=== PATIENT | male | born 1980 | race Caucasian/White ===

== ENCOUNTER 2022-01-15 11:56 | Observation (INO) ==
[2022-01-15] MEDS ORDERED: ONDANSETRON INJ 2 MG/ML 2 ML VIAL IV STA (12:09)
[2022-01-15] MEDS ORDERED: MoRPHine SULFATE 10 MG/ML CARP/VIAL IV STA ×2 (12:09→15:49)
--- NOTE | 2022-01-15 12:14 | Emergency Department Note ---
Impression & Plan Renal colic on right side, Kidney stones, Acute flank pain ED Provider Note NAME: DOM MILLER AGE: 41 SEX: M : 1980 ARRIVES VIA: Walk-In INFORMANT: Patient ED PROVIDER(S): Marvel Dominguez DO CHIEF COMPLAINT: abdominal pain HPI: Patient is a 41-year-old male who presents to the ER for right flank pain. Symptoms started about a week ago. He has been taking Flomax and Percocet. Denies any headache or change in vision. No chest pain or shortness of breath. Admits to nausea but no current vomiting. He has had some issues with constipation. Is having dysuria, urgency, or frequency. He notes he has not been urinating normally since Saturday. He is only urinating a small amount. ROS: See above HPI for pertinent positives & negatives. A total of 10 systems reviewed and were otherwise negative. PAST MEDICAL HISTORY:See Below PAST SURGICAL HISTORY:See Below FAMILY HISTORY:See Below SOCIAL HISTORY:See Below HOME MEDICATIONS:See Below ALLERGIES:See Below VITALS:See Below PHYSICAL EXAMINATION: GENERAL: Sitting up in bed, alert, moderate distress, non-toxic, morbidly obese, tearful EYE EXAM: normal conjunctiva. OROPHARYNX: no exudate, no erythema, lips, buccal mucosa, and tongue normal and mucous membranes are moist NECK: supple, no nuchal rigidity, no adenopathy, non-tender LUNGS: Clear to auscultation. Normal chest wall mechanics HEART: no murmurs, S1 normal and S2 normal ABDOMEN: abdomen soft, non-tender, normo-active bowel sounds, no masses, no rebound or guarding. UPPER EXTREMITIES: upper extremities are grossly normal. LOWER EXTREMITIES: No pitting edema. NEURO EXAM: Normal sensorium, cranial nerves II-XII grossly intact, normal speech, no gross weakness of arms, no gross weakness of legs. MEDICAL DECISION MAKING: Patient is a 41-year-old male who presents ER for right flank pain along with trouble urinating since this past Saturday. IV was established blood work was obtained. Labs show no significant leukocytosis or anemia. BMP with LFTs, bilirubin, and lipase is unremarkable. UA was clean. Renal ultrasound shows no hydro-. KUB with a stone possibly in the bladder. He was given IV narcotics and IV fluids as well as IV Zofran. He was seen and evaluated by urology. They believe the stone is likely in the penis and he cannot pass at this time. Recommended admission to medicine and they will scope tomorrow. Patient was given IV narcotics. Triage Nursing notes reviewed. Limited review of prior medical records performed Vital Signs: reviewed and remarkable for HTN Differential diagnosis: Differential diagnoses includes but is not limited to gastritis, peptic ulcer disease, GERD, gallbladder disease, pancreatitis, small bowel obstruction, acute coronary syndrome, pericarditis, ischemic bowel, irritable bowel disease, irritable bowel syndrome, appendicitis, diverticulitis, malignancy, hernia, urinary tract infection, torsion, [/ectopic (if female)], perforation, trauma, infectious. ER treatment provided: See below Diagnostics interpreted by me: Cardiac Monitoring: An order was placed for continuous cardiac monitoring. The monitor shows a rate of 80 with sinus rhythm. Laboratory studies: As stated above and show below. Imaging studies: CT abdomen pelvis was reviewed from previous visit in regards to dictation Ultrasound and KUB shows stone questionably in the bladder Consultation(s): Patient was seen and evaluated by urology and they recommended admission Discussed with the hospitalist for further evaluation Procedures: none Critical Care: None Past Med/Surg History Medical History Kidney stones Social History Smoking Status: Never smoker Preferred Language: Mongolian Feels Safe at Home: Yes Allergies Allergies Allergy/AdvReac Type Severity Reaction Status Date / Time ibuprofen Allergy Intermediate LIPS SWELL Verified 01/15/22 16:00 Home Meds Home Medications Medication Instructions Recorded Confirmed cyanocobalamin (vitamin B-12) 1,000 mcg SUBLINGUAL DAILY 01/07/22 01/15/22 1,000 mcg sublingual tablet levothyroxine 50 mcg tablet 50 mcg PO DAILY 01/07/22 01/15/22 lisinopril 40 mg tablet 40 mg PO DAILY 01/07/22 01/15/22 ondansetron 4 mg disintegrating 4 mg PO Q8H PRN 01/07/22 01/15/22 tablet pediatric multivitamin no.76 2 tab PO DAILY 01/07/22 01/15/22 (Flintstones Complete) Previous Rx's Medication Instructions Recorded oxycodone-acetaminophen 5 mg-325 1 tab PO TID PRN #10 tab 01/11/22 mg tablet (Percocet) ciprofloxacin HCl 500 mg tablet 500 mg PO BID #14 tab 01/14/22 (Cipro) tamsulosin 0.4 mg capsule 0.4 mg PO DAILY #30 cap 01/14/22 Results & Data (ED) Vital Signs Vital Signs - 24 hr 01/15/22 12:00 01/15/22 12:37 01/15/22 13:16 Temperature 37.1 C Temperature Source Temporal Artery Scan Pulse Rate 82 Pulse Rate [Finger] 77 Respiratory Rate 18 20 Respiratory Effort / Characteristics Non-Labored Respiratory Depth Normal Blood Pressure 182/83 H Blood Pressure [Left Arm] 133/54 L Blood Pressure Mean 116 Blood Pressure Mean [Left Arm] 80 Pulse Oximetry 94 96 95 Oxygen Delivery Method Room Air Room Air Room Air Sepsis Recent Fever Within 48 Hours No Sepsis New/Unexplained Change in Mental Status No Sepsis Action Taken by Nursing No Action Required 01/15/22 14:48 Temperature Temperature Source Pulse Rate Pulse Rate [Finger] 74 Respiratory Rate 18 Respiratory Effort / Characteristics Respiratory Depth Blood Pressure Blood Pressure [Left Arm] 121/74 Blood Pressure Mean Blood Pressure Mean [Left Arm] 89 Pulse Oximetry 96 Oxygen Delivery Method Room Air Sepsis Recent Fever Within 48 Hours Sepsis New/Unexplained Change in Mental Status Sepsis Action Taken by Nursing Laboratory Data Result diagrams: 01/15/22 12:35 01/15/22 12:35 Lab Results 01/15/22 01/15/22 01/15/22 Range/Units 12:30 12:35 12:35 WBC 6.25 (4.8-10.8) K/uL RBC 4.33 L (4.7-6.1) M/uL Hgb 13.5 L (14.0-18.0) g/dL Hct 40.2 L (42-52) % MCV 92.8 (80-100) fL MCH 31.2 (25-34) pg MCHC 33.6 (32-36) g/dL RDW Std Deviation 41.3 (36.4-46.3) fL RDW Coeff of Ritesh 12.2 (11.5-14.5) % Plt Count 200 (130-400) K/uL MPV 11.9 H (7.4-10.4) fL Immature Gran % (Auto) 0.5 % Neut % (Auto) 64.2 % Lymph % (Auto) 27.5 % [place] % (Auto) 5.9 % Eos % (Auto) 1.6 % Baso % (Auto) 0.3 % Neut # (Auto) 4.01 (1.4-6.5) K/uL Lymph # (Auto) 1.72 (1.2-3.4) K/uL [place] # (Auto) 0.37 (0.11-0.59) K/uL Eos # (Auto) 0.10 (0-0.5) K/uL Baso # (Auto) 0.02 (0-0.2) K/uL Immature Gran # (Auto) 0.03 H (0.00-0.02) K/uL Sodium 139 (136-145) mmol/L Potassium 4.6 (3.5-5.1) mmol/L Chloride 103 (98-107) mmol/L Carbon Dioxide 29 (21-32) mmol/L Anion Gap 7 (3-11) BUN 17 (6-23) mg/dl Creatinine 0.92 (0.6-1.4) mg/dl Est Cr Clr Drug Dosing 184.1 ml/min Est GFR ( Amer) 120.2 ml/min Est GFR (Non-Af Amer) 103.7 ml/min BUN/Creatinine Ratio 18.5 (10-20) Glucose 128 H (70-99(Fasting)) mg/dl Calcium 9.9 (8.5-10.1) mg/dl Total Bilirubin 0.5 (0.2-1.0) mg/dl AST 16 (13-39) U/L ALT 28 (7-52) U/L Alkaline Phosphatase 52 (34-104) U/L Total Protein 7.7 (6.0-8.3) gm/dl Albumin 4.5 (3.4-5.0) gm/dl Globulin 3.2 (2.5-4.0) gm/dl Albumin/Globulin Ratio 1.4 (0.9-2) Lipase 22 (11-82) U/L Urine Color Yellow Urine Appearance Clear (Clear) Urine pH 5.5 (4.5-7.5) Ur Specific [place] 1.019 (1.000-1.030) Urine Protein Trace H (Negative) Urine Glucose (UA) Negative (Negative) Urine Ketones Negative (Negative) Urine Blood Negative (Negative) Urine Nitrite Negative (Negative) Urine Bilirubin Negative (Negative) Urine Urobilinogen Negative (Negative) Ur Leukocyte Esterase Negative (Negative) Urine WBC (Auto) 1-5 (0-5) /hpf Urine RBC (Auto) 0-4 (0-4) /hpf U Hyaline Cast (Auto) 1-5 (0-5) /lpf U Epithel Cells (Auto) 10-20 H (0-5) /lpf Urine Bacteria (Auto) Negative (Negative) Administered Medications Sodium Chloride (Nss 1000ml) 1,000 mls @ 999 mls/hr IV .Q1H1M ONE Stop: 01/15/22 16:47 Last Admin: 01/15/22 16:02 Dose: 999 mls/hr Documented by: [id number] Discontinued Medications Morphine Sulfate (Morphine Sulfate 10 Mg/Ml Carp/Vial) 6 mg IV NOW STA Stop: 01/15/22 12:10 Last Admin: 01/15/22 12:43 Dose: 6 mg Documented by: [id number] Morphine Sulfate (Morphine Sulfate 10 Mg/Ml Carp/Vial) 6 mg IV NOW STA Stop: 01/15/22 15:50 Last Admin: 01/15/22 15:58 Dose: 6 mg Documented by: [id number] Ondansetron HCl (Ondansetron Inj 2 Mg/Ml 2 Ml Vial) 4 mg IV NOW STA Stop: 01/15/22 12:10 Last Admin: 01/15/22 12:43 Dose: 4 mg Documented by: [id number] Imaging Data Radiologist's Impression: KUB X-Ray 01/15/22 12:09 KUB CLINICAL HISTORY: Right flank pain. COMPARISON STUDY: CT of the abdomen and pelvis January 04, 2022. KUB January 07, 2022. Renal ultrasound performed earlier today. FINDINGS: Postoperative findings within left upper quadrant are incidentally noted. Pelvic calcifications favor phleboliths. No ureteral calculi are identified although sensitivity is diminished on this study. A 6 mm pelvic calcification is noted, just to the right of midline. This was present on prior KUB. IMPRESSION: 1. No ureteral calculi identified although sensitivity diminished on this study. 2. Possible 6 mm bladder calculus. ACT 112: Negative or not required by law. Electronically signed by: Timur Cohen M.D. 01/15/2022 2:56 PM Renal Ultrasound 01/15/22 12:09 RENAL ULTRASOUND CLINICAL HISTORY: Right flank pain. COMPARISON STUDY: KUB January 07, 2022. CT of the abdomen and pelvis January 04, 2022. TECHNIQUE: Sonography of the kidneys and the urinary bladder was performed. FINDINGS: This exam is compromised by suboptimal penetration. The right kidney measures 12.7 cm in maximal dimension left measures 13.6 cm. There is no hydronephrosis. A 2.2 cm cyst within the right kidney is noted. There is a probable prominent column of Chavo within the left kidney. Right ureteral jet was not visualized. Hepatic echogenicity is increased. Gallbladder is mildly distended. There is no gallbladder wall thickening. No renal calculi are identified although these may be occult by sonography. IMPRESSION: 1. No hydronephrosis. 2. Exam compromised by suboptimal penetration. ACT 112: Negative or not required by law. Electronically signed by: Timur Cohen M.D. 01/15/2022 2:05 PM Discharge Plan Visit Data Chief Complaint: Unable to Void Stated Complaint: KIDNEY STONE, CANNOT URINATE, IN PAIN ED Provider: Marvel Dominguez Discharge Problem: Renal colic on right side, Kidney stones, Acute flank pain Forms Stand Alone Forms: [facility] [employer] Prescriptions Prescriptions: No Action ciprofloxacin HCl [Cipro] 500 mg tablet 500 mg PO BID Qty: 14 RF: 0 tamsulosin 0.4 mg capsule 0.4 mg PO DAILY Qty: 30 RF: 11 oxycodone-acetaminophen [Percocet] 5-325 mg tablet 1 tab PO TID PRN (Reason: pain) Qty: 10 RF: 0 levothyroxine 50 mcg tablet 50 mcg PO DAILY RF: 0 cyanocobalamin (vitamin B-12) [Vitamin B-12] 1,000 mcg Tablet, Sublingual 1,000 mcg SUBLINGUAL DAILY RF: 0 lisinopril 40 mg tablet 40 mg PO DAILY RF: 0 ondansetron 4 mg tablet,disintegrating 4 mg PO Q8H PRN (Reason: NAUSEA/VOMITING) RF: 0 Flintstones Complete Tablet,Chewable 2 tab PO DAILY RF: 0 Referrals Referrals: Rajani Kim D.O. [Primary Care Provider] -
[2022-01-15 12:54] LABS: Basophils # (auto) 0.02 K/uL (0-0.2); Basophils % (auto) 0.3 %; Eosinophils % (auto) 1.6 %; Hematocrit (blood only) 40.2 % (42-52); Hemoglobin 13.5 g/dL (14.0-18.0); Immature Granulocytes # (auto) 0.03 K/uL (0.00-0.02); Immature Granulocytes % (auto) 0.5 %; Lymphocytes # (auto) 1.72 K/uL (1.2-3.4); Lymphocytes % (auto) 27.5 %; Mean Corpuscular Hemoglobin 31.2 pg (25-34); Mean Corpuscular Hgb Conc 33.6 g/dL (32-36); Mean Corpuscular Volume 92.8 fL (80-100); Mean Platelet Volume 11.9 fL (7.4-10.4); Monocytes # (auto) 0.37 K/uL (0.11-0.59); Monocytes % (auto) 5.9 %; Neutrophils # (auto) 4.01 K/uL (1.4-6.5); Neutrophils % (auto) 64.2 %; Platelet Count 200 K/uL (130-400); RDW Coefficient of Variation 12.2 % (11.5-14.5); RDW Standard Deviation 41.3 fL (36.4-46.3); Red Blood Count 4.33 M/uL (4.7-6.1); White Blood Count 6.25 K/uL (4.8-10.8)
[2022-01-15 13:05] LABS: Appearance Urine Clear (Clear); Bacteria Urine Automated Negative (Negative); Bilirubin Urine Negative (Negative); Blood Urine Negative (Negative); Color Urine Yellow; Glucose Urine UA Negative (Negative); Ketones Urine Negative (Negative); Leukocyte Esterase Urine Negative (Negative); Nitrite Urine Negative (Negative); Protein Urine Trace (Negative); RBC Urine Automated 0-4 /hpf (0-4); Specific Gravity Urine 1.019 (1.000-1.030); Urobilinogen Urine Negative (Negative); pH Urine 5.5 (4.5-7.5)
[2022-01-15 13:18] LABS: Albumin Globulin Ratio 1.4 (0.9-2); Albumin Level 4.5 gm/dl (3.4-5.0); BUN Creatinine Ratio 18.5 (10-20); Bilirubin,Total 0.5 mg/dl (0.2-1.0); Calcium 9.9 mg/dl (8.5-10.1); Creatinine Clr Calc Pharmacy 184.1 ml/min; Est GFR (African American) 120.2 ml/min; Est GFR (Non-African American) 103.7 ml/min; Globulin 3.2 gm/dl (2.5-4.0); Potassium 4.6 mmol/L (3.5-5.1); Total Protein 7.7 gm/dl (6.0-8.3)
--- NOTE | 2022-01-15 14:06 | Ultrasound Report ---
RENAL ULTRASOUND CLINICAL HISTORY: Right flank pain. COMPARISON STUDY: KUB January 07, 2022. CT of the abdomen and pelvis January 04, 2022. TECHNIQUE: Sonography of the kidneys and the urinary bladder was performed. FINDINGS: This exam is compromised by suboptimal penetration. The right kidney measures 12.7 cm in ma ximal dimension left measures 13.6 cm. There is no hydronephrosis. A 2.2 cm cyst within the right kid delilah is noted. There is a probable prominent column of Chavo within the left kidney. Right ureteral j et was not visualized. Hepatic echogenicity is increased. Gallbladder is mildly distended. There is n o gallbladder wall thickening. No renal calculi are identified although these may be occult by sonogr aphy. IMPRESSION: 1. No hydronephrosis. 2. Exam compromised by suboptimal penetration. ACT 112: Negative or not required by law. Electronically signed by: Timur Cohen M.D. 01/15/2022 2:05 PM
--- NOTE | 2022-01-15 14:57 | XRay Report ---
KUB CLINICAL HISTORY: Right flank pain. COMPARISON STUDY: CT of the abdomen and pelvis January 04, 2022. KUB January 07, 2022. Renal ultrasound perf ormed earlier today. FINDINGS: Postoperative findings within left upper quadrant are incidentally noted. Pelvic calcificat ions favor phleboliths. No ureteral calculi are identified although sensitivity is diminished on this study. A 6 mm pelvic calcification is noted, just to the right of midline. This was present on prior KUB. IMPRESSION: 1. No ureteral calculi identified although sensitivity diminished on this study. 2. Possible 6 mm bladder calculus. ACT 112: Negative or not required by law. Electronically signed by: Timur Cohen M.D. 01/15/2022 2:56 PM
[2022-01-15] MEDS ORDERED: SODIUM CHLORIDE 0.9% 1000ML 1,000 ML IV ONE (15:47)
--- NOTE | 2022-01-15 16:41 | History & Physical Report ---
Date of Service January 15, 2022 Assessment & Plan (1) Unable to void: Plan: Currently with likely obstruction of urethra with inability to pass robert - continue flomax - bladder scan q 4 hour - if unable to void or bladder distention - attempt Robert placement- if unsuc cessful call urology - clears - NPO after midnight - Rocephin 2GM IV empiric urine coverage (2) Kidney stones: Plan: As above - Urology consulted (3) HTN (hypertension): Plan: Hold lisinopril in AM follow renal function and BP (4) Hypothyroidism: Plan: Continue with Synthroid (5) DMII (diabetes mellitus, type 2): Plan: Patient is not on oral therapy any more following his Gastric Bypass and weight loss - AC/HS/q6 hour blood sugar checks- notify if > 180mg/dl - hypoglycemic protocol (6) ALISHA (obstructive sleep apnea): Plan: Home CPAP - went to bring back - if not CPAP 13cm H20 History of Present Illness Primary Care Provider: Rajani Kim 41 YOM with medical history of: Obesity (s/p gastric bypass 2015), ALISHA, DM II, HTN, kidney stone. Patient originally seen by urology in the beginning of January 2021 for renal stones following evaluation at OSH. The patient was planned to have cystoscopy and ureteroscopy with stone treatment this 01/18/22. He was empirically started on Ciprofloxacin as outpatient as well as started on Flomax. Over the weekend the patient had onset lower pelvic pain and decrease in ability to urinate. He has been able to dribble out urine, but incompletely able to void. He was seen in the EMD and had KUB performed, and Urology evaluation while in the EMD. Stone believed to be in his urethra, an attempt was made by EMD to pass Robert catheter where they were able to drain approx 500ml of urine but unable to maintain catheter in bladder. Hospitalist service was asked to admit patient for planned cystoscopy/ureteroscopy in the morning. Will continue with Flomax, allow for clear diet, NPO after midnight, and continue with q4 hour bladder scans. COVID test on admission is: Pending Allergies Allergy/AdvReac Type Severity Reaction Status Date / Time ibuprofen Allergy Intermediate LIPS SWELL Verified 01/15/22 16:00 Home Medications Medication Instructions Recorded Confirmed Type cyanocobalamin (vitamin B-12) 1,000 mcg SUBLINGUAL DAILY 01/07/22 01/15/22 History 1,000 mcg sublingual tablet levothyroxine 50 mcg tablet 50 mcg PO DAILY 01/07/22 01/15/22 History lisinopril 40 mg tablet 40 mg PO DAILY 01/07/22 01/15/22 History ondansetron 4 mg disintegrating 4 mg PO Q8H PRN 01/07/22 01/15/22 History tablet pediatric multivitamin no.76 2 tab PO DAILY 01/07/22 01/15/22 History (Flintstones Complete) oxycodone-acetaminophen 5 mg-325 1 tab PO TID PRN #10 tab 01/11/22 01/15/22 Rx mg tablet (Percocet) ciprofloxacin HCl 500 mg tablet 500 mg PO BID #14 tab 01/14/22 01/15/22 Rx (Cipro) tamsulosin 0.4 mg capsule 0.4 mg PO DAILY #30 cap 01/14/22 01/15/22 Rx Past Med/Surg History Medical History (Updated 01/16/22 @ 10:20 by Ramos Rebolledo MD) DMII (diabetes mellitus, type 2) HTN (hypertension) Hypothyroidism Kidney stones Morbid obesity Surgical History H/O gastric bypass Family History Other Family history non-contributory Social History Smoking Status: Never smoker Hx Alcohol Use: No Hx Substance Use: No Preferred Language: Singaporean Communication Ability: Effective Lead Consultant Required: No Beliefs That Will Affect Care: None Current Living Situation: Spouse Other Information That Helps Us Care for You: No Feels Safe at Home: Yes Safety Concerns: Feels Safe At This Time Assistive Devices: CPAP Review of Systems Review of Systems: REVIEW OF SYSTEMS: Constitutional: No fever, sweats or chills Eyes: No diplopia, no worsening or blurred vision ENT: normal hearing, no trouble swallowing Respiratory: No cough, sputum, dyspnea at rest or on exertion Cardiovascular: No chest pain, tightness or palpitations Abdomen: No pain, nausea, vomiting, diarrhea or constipation : (+) bladder pain, inability to complete voiding Musculoskeletal: No joint pain, calf pain, swelling Neurologic: No weakness, numbness/tingling, or balance problems Psychiatric: No anxiety or depression Skin: No rash or itch Physical Exam Physical Exam: PHYSICAL EXAM: General: awake, alert, no apparent distress Head: Normocephalic, atraumatic ENT: PERRL, EOMI, no pharyngeal exudate, mucous membranes moist Neuro: AAO x 3, speech clear and appropriate, strength intact bilaterally 5/5, sensation intact and equal all extremities and dermatomes, no pronator drift Chest: equal rise and fall of the chest, no accessory muscle use, no heaves or thrills, Clear to auscultation, on room air, Cardiac: Regular rate and rhythm, telemetry reviewed, skin warm dry, cap refill <3 seconds, peripheral pulses +2 no JVD, no murmur, no edema GI: NABS x 4 quadrants, soft, nontender to palpation, no rebound, guarding or tenderness, bladder not overly distended and mild discomfort with palpation : minimal output, no pain, no CVA tenderness, Extremities: Normal inspection, no peripheral edema or erythema, calfs nontender to palpation Psych: Normal mood and affect Skin: no rash or erythema Results & Data Results & Data ([facility]) Vital Signs (Past 12 Hours) Vital Signs Temp Pulse Pulse Resp BP BP Pulse Ox 01/15/22 16:19 65 18 165/47 H 98 01/15/22 14:48 74 18 121/74 96 01/15/22 13:16 77 20 133/54 L 95 01/15/22 12:37 96 01/15/22 12:00 37.1 C 82 18 182/83 H 94 Laboratory Results Laboratory Results - last 24 hr 01/15/22 01/15/22 01/15/22 12:30 12:35 12:35 WBC 6.25 RBC 4.33 L Hgb 13.5 L Hct 40.2 L MCV 92.8 MCH 31.2 MCHC 33.6 RDW Std Deviation 41.3 RDW Coeff of Ritesh 12.2 Plt Count 200 MPV 11.9 H Immature Gran % (Auto) 0.5 Neut % (Auto) 64.2 Lymph % (Auto) 27.5 [place] % (Auto) 5.9 Eos % (Auto) 1.6 Baso % (Auto) 0.3 Neut # (Auto) 4.01 Lymph # (Auto) 1.72 [place] # (Auto) 0.37 Eos # (Auto) 0.10 Baso # (Auto) 0.02 Immature Gran # (Auto) 0.03 H Sodium 139 Potassium 4.6 Chloride 103 Carbon Dioxide 29 Anion Gap 7 BUN 17 Creatinine 0.92 Est Cr Clr Drug Dosing 184.1 Est GFR ( Amer) 120.2 Est GFR (Non-Af Amer) 103.7 BUN/Creatinine Ratio 18.5 Glucose 128 H Calcium 9.9 Total Bilirubin 0.5 AST 16 ALT 28 Alkaline Phosphatase 52 Total Protein 7.7 Albumin 4.5 Globulin 3.2 Albumin/Globulin Ratio 1.4 Lipase 22 Urine Color Yellow Urine Appearance Clear Urine pH 5.5 Ur Specific [place] 1.019 Urine Protein Trace H Urine Glucose (UA) Negative Urine Ketones Negative Urine Blood Negative Urine Nitrite Negative Urine Bilirubin Negative Urine Urobilinogen Negative Ur Leukocyte Esterase Negative Urine WBC (Auto) 1-5 Urine RBC (Auto) 0-4 U Hyaline Cast (Auto) 1-5 U Epithel Cells (Auto) 10-20 H Urine Bacteria (Auto) Negative Diagnostic Findings KUB X-Ray 01/15/22 12:09 KUB CLINICAL HISTORY: Right flank pain. COMPARISON STUDY: CT of the abdomen and pelvis January 04, 2022. KUB January 07, 2022. Renal ultrasound performed earlier today. FINDINGS: Postoperative findings within left upper quadrant are incidentally noted. Pelvic calcifications favor phleboliths. No ureteral calculi are identified although sensitivity is diminished on this study. A 6 mm pelvic calcification is noted, just to the right of midline. This was present on prior KUB. IMPRESSION: 1. No ureteral calculi identified although sensitivity diminished on this study. 2. Possible 6 mm bladder calculus. ACT 112: Negative or not required by law. Electronically signed by: Timur Cohen M.D. 01/15/2022 2:56 PM Renal Ultrasound 01/15/22 12:09 RENAL ULTRASOUND CLINICAL HISTORY: Right flank pain. COMPARISON STUDY: KUB January 07, 2022. CT of the abdomen and pelvis January 04, 2022. TECHNIQUE: Sonography of the kidneys and the urinary bladder was performed. FINDINGS: This exam is compromised by suboptimal penetration. The right kidney measures 12.7 cm in maximal dimension left measures 13.6 cm. There is no hydronephrosis. A 2.2 cm cyst within the right kidney is noted. There is a probable prominent column of [place] within the left kidney. Right ureteral jet was not visualized. Hepatic echogenicity is increased. Gallbladder is mildly distended. There is no gallbladder wall thickening. No renal calculi are identified although these may be occult by sonography. IMPRESSION: 1. No hydronephrosis. 2. Exam compromised by suboptimal penetration. ACT 112: Negative or not required by law. Electronically signed by: Timur Cohen M.D. 01/15/2022 2:05 PM Medications Administered Home Medications cyanocobalamin (vitamin B-12) 1,000 mcg sublingual tablet 1,000 mcg SUBLINGUAL DAILY 01/07/22 [History Confirmed 01/15/22] levothyroxine 50 mcg tablet 50 mcg PO DAILY 01/07/22 [History Confirmed 01/15/22] lisinopril 40 mg tablet 40 mg PO DAILY 01/07/22 [History Confirmed 01/15/22] ondansetron 4 mg disintegrating tablet 4 mg PO Q8H PRN 01/07/22 [History Confirmed 01/15/22] pediatric multivitamin no.76 (Flintstones Complete) 2 tab PO DAILY 01/07/22 [History Confirmed 01/15/22] oxycodone-acetaminophen 5 mg-325 mg tablet (Percocet) 1 tab PO TID PRN #10 tab 01/11/22 [Rx Confirmed 01/15/22] ciprofloxacin HCl 500 mg tablet (Cipro) 500 mg PO BID #14 tab 01/14/22 [Rx Conf irmed 01/15/22] tamsulosin 0.4 mg capsule 0.4 mg PO DAILY #30 cap 01/14/22 [Rx Confirmed 01/15/22] Discontinued Medications Sodium Chloride (Nss 1000ml) 1,000 mls @ 999 mls/hr IV .Q1H1M ONE Stop: 01/15/22 16:47 Last Admin: 01/15/22 16:02 Dose: 999 mls/hr Documented by: [id number] Morphine Sulfate (Morphine Sulfate 10 Mg/Ml Carp/Vial) 6 mg IV NOW STA Stop: 01/15/22 12:10 Last Admin: 01/15/22 12:43 Dose: 6 mg Documented by: [id number] Morphine Sulfate (Morphine Sulfate 10 Mg/Ml Carp/Vial) 6 mg IV NOW STA Stop: 01/15/22 15:50 Last Admin: 01/15/22 15:58 Dose: 6 mg Documented by: [id number] Ondansetron HCl (Ondansetron Inj 2 Mg/Ml 2 Ml Vial) 4 mg IV NOW STA Stop: 01/15/22 12:10 Last Admin: 01/15/22 12:43 Dose: 4 mg Documented by: [id number] ECG Additional Comments: On admission- pending Code Status & VTE Plan Code Status CODE: FULL VTE: SCDs, heparin 5000 units sub q q12 Supervising Physician Co-Signing Physician Notes I personally saw and examined the patient. I verified all marion points and agree with ECHO Guo with the following exceptions and/or additions: 41 year old male admission with right flank pain, pelvic pain and difficulty passing urine with known kidney stones and planned cystoscopy. Patient alert, orientated, non septic appearing, no respiratory distress. In distress from lower abdominal pain when seen, needing to go to the bathroom A/P Bladder calculus with difficulty passing urine but no urinary retention - consult urology, agree with ceftriaxone prophylaxis, UA pending, NPO after midnight PG Care Time/CCT Total # of Minutes Spent Total Time Spent with Patient: Total time spent is greater than 50% in coordination of care (as documented) at patient's floor/unit and/or counseling patient: Coding Level of Care Code 05494 Initial Inpt Care Lvl 3 Diagnoses Kidney stones N20.0 Unable to void R33.9 HTN (hypertension) I10 Hypothyroidism E03.9 DMII (diabetes mellitus, type 2) E11.9 ALISHA (obstructive sleep apnea) G47.33
[2022-01-15] MEDS ORDERED: CARBOHYDRATES FOR HYPOGLYCEMIA PO PRN (21:06)
[2022-01-15] MEDS ORDERED: GLUCOSE 40% GEL 15 GM TUBE PO PRN (21:06)
[2022-01-15] MEDS ORDERED: GLUCAGON FOR INJ 1 MG VIAL SQ PRN (21:06)
[2022-01-15] MEDS ORDERED: GLUCOSE 10 TABS/TUBE PO PRN (21:06)
[2022-01-15] MEDS ORDERED: ONDANSETRON 4 MG OD TAB PO PRN (21:06)
[2022-01-15] MEDS ORDERED: DEXTROSE 50% 50 ML SYRINGE IV PRN (21:06)
[2022-01-15] MEDS ORDERED: cefTRIAXone SODIUM 2,000 MG in DEXTROSE 5% 50 ML IV SCH (22:00)
[2022-01-15] MEDS: oxyCODONE/ACETAMINOPHEN 5mg/325mg TAB PO PRN (22:01)
[2022-01-15] MEDS: HEPARIN SOD 5,000 UNIT/0.5 ML VIAL SQ SCH (22:41)
[2022-01-15] MEDS ORDERED: MoRPHine SULFATE 2 MG/ML CARP IV STA (23:28)
[2022-01-16] MEDS: oxyCODONE/ACETAMINOPHEN 5mg/325mg TAB PO PRN ×2 (06:03→12:51)
[2022-01-16] MEDS ORDERED: LEVOTHYROXINE SODIUM 50 MCG TABLET PO SCH (06:30)
[2022-01-16 08:01] LABS: Basophils # (auto) 0.04 K/uL (0-0.2); Basophils % (auto) 0.6 %; Eosinophils # (auto) 0.18 K/uL (0-0.5); Eosinophils % (auto) 2.6 %; Hematocrit (blood only) 40.2 % (42-52); Hemoglobin 12.9 g/dL (14.0-18.0); Immature Granulocytes # (auto) 0.02 K/uL (0.00-0.02); Immature Granulocytes % (auto) 0.3 %; Lymphocytes # (auto) 2.17 K/uL (1.2-3.4); Lymphocytes % (auto) 31.5 %; Mean Corpuscular Hemoglobin 30.6 pg (25-34); Mean Corpuscular Hgb Conc 32.1 g/dL (32-36); Mean Corpuscular Volume 95.3 fL (80-100); Mean Platelet Volume 11.6 fL (7.4-10.4); Monocytes # (auto) 0.67 K/uL (0.11-0.59); Monocytes % (auto) 9.7 %; Neutrophils % (auto) 55.3 %; Platelet Count 201 K/uL (130-400); RDW Coefficient of Variation 12.5 % (11.5-14.5); RDW Standard Deviation 43.2 fL (36.4-46.3); Red Blood Count 4.22 M/uL (4.7-6.1); White Blood Count 6.88 K/uL (4.8-10.8)
[2022-01-16] MEDS: HEPARIN SOD 5,000 UNIT/0.5 ML VIAL SQ SCH (08:19)
[2022-01-16 08:20] LABS: BUN Creatinine Ratio 18.3 (10-20); Calcium 9.3 mg/dl (8.5-10.1); Creatinine Clr Calc Pharmacy 182.1 ml/min; Est GFR (African American) 118.6 ml/min; Est GFR (Non-African American) 102.3 ml/min; Magnesium 1.8 mg/dl (1.7-2.4); Potassium 4.5 mmol/L (3.5-5.1)
--- NOTE | 2022-01-16 08:20 | Urology Consultation ---
Date of Consultation January 16, 2022 Assessment & Plan (1) Kidney stones: (2) Bladder calculus: Previously with a right proximal ureteral calculus It appears that the stone has now moved into the bladder/urethra I reviewed his ultrasound and KUB from yesterdaylimited information from both of those secondary to his body habitus but there is a hint of a stone in the bladder Discussed 2 different options with him1 is observation avoidance of intervention acutely The second option was cystoscopy possible cystolitholopaxy to try to treat the urethral or bladder stone with concurrent retrograde pyelogram and possible right ureteral stent placement if the stone has not yet cleared the ureter He is very fearful of recurrent episodes of pain and would like to pursue the surgical option Consent has been completed and is on the chart We discussed specific risks - his body habitus and potential for respiratory issues certainly seems to be the most considerable History of Present Illness Attending Physician: Allison Jones MD History of Present Illness 41-year-old gentleman who was previously seen in outside ER for a 6 mm right proximal ureteral calculus and subsequently had follow-up in our office with planned surgery for later this week to treat his stone He presented to the ER yesterday with shifting discomfort and suspicion of the stone and now moved into the bladder/urethra He was having significant difficulty urinating There was a straight cath placed in the ERextreme discomfort with this He has not yet seen any stones pass but he reports that he is voiding more efficiently today Generating a reasonable stream, no gross blood Still with dysuria and discomfort He is straining his urine Afebrile Vitals stable Allergies Allergy/AdvReac Type Severity Reaction Status Date / Time ibuprofen Allergy Intermediate LIPS SWELL Verified 01/15/22 16:00 Home Medications Medication Instructions Recorded Confirmed Type cyanocobalamin (vitamin B-12) 1,000 mcg SUBLINGUAL DAILY 01/07/22 01/15/22 History 1,000 mcg sublingual tablet levothyroxine 50 mcg tablet 50 mcg PO DAILY 01/07/22 01/15/22 History lisinopril 40 mg tablet 40 mg PO DAILY 01/07/22 01/15/22 History ondansetron 4 mg disintegrating 4 mg PO Q8H PRN 01/07/22 01/15/22 History tablet pediatric multivitamin no.76 2 tab PO DAILY 01/07/22 01/15/22 History (Flintstones Complete) oxycodone-acetaminophen 5 mg-325 1 tab PO TID PRN #10 tab 01/11/22 01/15/22 Rx mg tablet (Percocet) ciprofloxacin HCl 500 mg tablet 500 mg PO BID #14 tab 01/14/22 01/15/22 Rx (Cipro) tamsulosin 0.4 mg capsule 0.4 mg PO DAILY #30 cap 01/14/22 01/15/22 Rx Patient History Medical History DMII (diabetes mellitus, type 2) HTN (hypertension) Hypothyroidism Kidney stones Obesity Surgical History H/O gastric bypass Family History Other Family history non-contributory Social History Smoking Status: Never smoker Hx Alcohol Use: No Hx Substance Use: No Preferred Language: [place]er Communication Ability: Effective Chemist Organic Required: No Beliefs That Will Affect Care: None Current Living Situation: Spouse Other Information That Helps Us Care for You: No Feels Safe at Home: Yes Safety Concerns: Feels Safe At This Time Assistive Devices: CPAP Review of Systems Constitutional: no fever, no chills and no fatigue Eyes: no worsening vision Ear, Nose, Mouth, Throat: no facial pain and no pain with swallowing Respiratory: no cough and no dyspnea Cardiovascular: no chest pain and no palpitations Gastrointestinal: no abdominal pain, no nausea and no vomiting Genitourinary: + dysuria, + difficulty urinating and + urinary hesitancy Musculoskeletal: no back pain Integumentary: no rash and no urticaria Neurologic: no gait abnormality and no unsteadiness Psychiatric: no behavioral changes and no depression Endocrine: no fatigue Physical Exam Physical Exam: Obese Semiburied penis Palpation along the urethra fails to reveal a definitive stone Constitutional: well developed and well nourished Neck: neck nontender Respiratory: normal respiratory effort; no respiratory distress and does not use accessory muscles Cardiovascular: Rate/Rhythm: regular rate Vessels: radial pulses present Extremities: no edema Gastrointestinal (Abdomen): Inspection/Auscultation: abdomen normal to inspection Percussion/Palpation: abdomen soft; abdomen nontender and no guarding Musculoskeletal: Head/Neck/Chest: normocephalic and head atraumatic Extremities: extremities normal to inspection Skin: no rashes and no lesions Trauma: no evidence of skin trauma Neurologic: awake; not obtunded Speech / Cognition: normal speech Motor/Sensory: no tremor Psychiatric: Orientation: alert and oriented x 3 Genitourinary: no CVA tenderness Lymphatic: no lymphadenopathy Results & Data ([facility]) Vital Signs (Past 12 Hours) Vital Signs Temp Pulse Resp BP Pulse Ox 01/16/22 07:01 36.9 C 56 L 16 129/63 95 01/15/22 21:29 36.6 C 63 20 156/77 H 95 PG Care Time/CCT Total # of Minutes Spent Total Time Spent with Patient: Total time spent is greater than 50% in coordination of care (as documented) at patient's floor/unit and/or counseling patient: Coding Level of Care Code 97718 Inpt Consult Level 4 Diagnoses Kidney stones N20.0 Bladder calculus N21.0
[2022-01-16] MEDS ORDERED: TAMSULOSIN HCL 0.4 MG CAP PO SCH (09:00)
[2022-01-16] MEDS ORDERED: CYANOCOBALAMIN (B-12) 500 MCG TABLET PO SCH (09:00)
--- NOTE | 2022-01-16 09:01 | XRay Report ---
XR KUB/Abdomen 1 view CLINICAL HISTORY: evaluate for renal/bladder/ureter stones TECHNIQUE: 1 view of the abdomen was obtained. Comparison: Comparison is made to abdomen radiographs 01/15/2022 FINDINGS: Postoperative findings in the left upper quadrant. No evidence of renal or bladder stones. Phlebolith s are seen in the pelvis. The osseous structures are grossly unremarkable. The bowel gas pattern is n onobstructive. A moderate amount of stool is noted within the large bowel. IMPRESSION: No radiographic evidence of nephrolithiasis. ACT 112: Negative or not required by law. Electronically signed by: Selvin Villarreal M.D. 01/16/2022 8:58 AM
--- NOTE | 2022-01-16 09:25 | Anesthesiology Consultation ---
Date of Service January 16, 2022 Assessment & Plan (1) Encounter for pre-operative examination: Chart Review Chart Review: Acceptable Risk for Surgery and Patient NOT seen in Pre Admission Testing Consults Requested none History Surgery Operation Date: 01/16/22 09:20 Proposed Procedures p Cystolithopaxy, Right Retrograde Pyelogram, Possible Stent - Jose Mtz MD Height/Weight Height: 5 ft 10 in Weight: 195.4 kg Allergies Allergy/AdvReac Type Severity Reaction Status Date / Time ibuprofen Allergy Intermediate LIPS SWELL Verified 01/15/22 16:00 Medications Home Medications Medication Instructions Recorded Confirmed Last Taken cyanocobalamin (vitamin B-12) 1,000 mcg SUBLINGUAL DAILY 01/07/22 01/15/22 01/15/22 1,000 mcg sublingual tablet levothyroxine 50 mcg tablet 50 mcg PO DAILY 01/07/22 01/15/22 01/15/22 lisinopril 40 mg tablet 40 mg PO DAILY 01/07/22 01/15/22 01/15/22 ondansetron 4 mg disintegrating 4 mg PO Q8H PRN 01/07/22 01/15/22 Unknown tablet pediatric multivitamin no.76 2 tab PO DAILY 01/07/22 01/15/22 01/15/22 (Flintstones Complete) oxycodone-acetaminophen 5 mg-325 1 tab PO TID PRN #10 tab 01/11/22 01/15/22 Unknown mg tablet (Percocet) ciprofloxacin HCl 500 mg tablet 500 mg PO BID #14 tab 01/14/22 01/15/22 01/15/22 08:00 (Cipro) tamsulosin 0.4 mg capsule 0.4 mg PO DAILY #30 cap 01/14/22 01/15/22 01/15/22 Active Medications Generic Name Dose Route Start Last Admin Trade Name Freq PRN Reason Stop Dose Admin Cyanocobalamin 1,000 mcg 01/16/22 09:00 01/16/22 08:17 Cyanocobalamin (B-12) 500 Mcg Tablet PO 02/15/22 08:59 1,000 mcg DAILY ROMEO Administration Heparin Sodium (Porcine) 5,000 units 01/15/22 21:06 01/16/22 08:19 Heparin Sod 5,000 Unit/0.5 Ml Vial SQ 02/14/22 21:05 Not Given Q12 ROMEO Ceftriaxone Sodium 2,000 mg/ 70 mls @ 140 mls/hr 01/15/22 22:00 01/15/22 22:41 Dextrose IV 01/20/22 21:59 Infused Q24H ROMEO Infusion Protocol Levothyroxine Sodium 50 mcg 01/16/22 06:30 01/16/22 05:42 Levothyroxine Sodium 50 Mcg Tablet PO 02/15/22 06:29 50 mcg DAILYBB ROMEO Administration Oxycodone/Acetaminophen 1 tab 01/15/22 21:06 01/16/22 06:03 Oxycodone/Acetaminophen 5mg/325mg Tab PO 01/29/22 21:05 1 tab TID PRN Administration pain Tamsulosin HCl 0.4 mg 01/16/22 09:00 01/16/22 08:17 Tamsulosin Hcl 0.4 Mg Cap PO 02/15/22 08:59 0.4 mg DAILY ROMEO Administration Past Medical History Medical History DMII (diabetes mellitus, type 2) HTN (hypertension) Hypothyroidism Kidney stones Obesity Past Family History Family History Other Family history non-contributory Past Surgical History Surgical History H/O gastric bypass Social History Smoking Status: Never smoker Hx Alcohol Use: No Hx Substance Use: No Physical Exam Vital Signs Last Vital Signs Temp 98.4 F 01/16/22 07:01 Pulse 56 L 01/16/22 07:01 Resp 16 01/16/22 07:01 BP 129/63 01/16/22 07:01 Pulse Ox 95 01/16/22 07:01 Testing Laboratory Results 01/16/22 07:38 01/16/22 07:38 Urine Color Yellow 01/15/22 12:30 Urine Appearance Clear (Clear) 01/15/22 12:30 Urine pH 5.5 (4.5-7.5) 01/15/22 12:30 Ur Specific [place] 1.019 (1.000-1.030) 01/15/22 12:30 Urine Protein Trace (Negative) H 01/15/22 12:30 Urine Glucose (UA) Negative (Negative) 01/15/22 12:30 Urine Ketones Negative (Negative) 01/15/22 12:30 Urine Nitrite Negative (Negative) 01/15/22 12:30 Ur Leukocyte Esterase Negative (Negative) 01/15/22 12:30 Urine WBC (Auto) 1-5 /hpf (0-5) 01/15/22 12:30 Urine RBC (Auto) 0-4 /hpf (0-4) 01/15/22 12:30 U Hyaline Cast (Auto) 1-5 /lpf (0-5) 01/15/22 12:30 U Epithel Cells (Auto) 10-20 /lpf (0-5) H 01/15/22 12:30 Urine Bacteria (Auto) Negative (Negative) 01/15/22 12:30 01/16/22 08:21 POC Glucose 103 H Electrocardiogram Date: 01/16/22 Findings: + NSR @
[2022-01-16] MEDS ORDERED: ATROPINE SULFATE 0.1 MG/ML 10ML SYR IV PRN (10:17)
[2022-01-16] MEDS ORDERED: ONDANSETRON INJ 2 MG/ML 2 ML VIAL IV PRN (10:17)
[2022-01-16] MEDS ORDERED: HYDROmorphone INJ 1 MG/ML SYRINGE IV PRN (10:17)
[2022-01-16] MEDS ORDERED: PHENYLEPHRINE 100MCG/ML 5ML SYR IV PRN (10:17)
[2022-01-16] MEDS ORDERED: ePHEDrine sulfate 50 MG/ML AMP IV PRN (10:17)
[2022-01-16] MEDS ORDERED: LABETALOL HCL IV 5 MG/ML 20ML IV PRN (10:17)
[2022-01-16] MEDS ORDERED: MIDAZOLAM HCL 1 MG/ML 2ML VIAL ONE (10:27)
[2022-01-16] MEDS ORDERED: fentaNYL citrate 100 MCG/2 ML VIAL ONE ×2 (10:27→11:11)
[2022-01-16] MEDS ORDERED: KETAMINE 50 MG/5 ML SYRINGE ONE (10:28)
[2022-01-16] MEDS ORDERED: PROPOFOL IV EMULSION 10 MG/ML 20 ML VIAL IV ONE ×2 (10:30→11:19)
[2022-01-16] MEDS ORDERED: LIDOCAINE 2% 2 ML VIAL/AMP(20MG/ML) INFIL ONE (10:30)
[2022-01-16] MEDS ORDERED: GLYCOPYRROLATE 0.2 MG/ML VIAL ONE (11:25)
[2022-01-16] MEDS ORDERED: ONDANSETRON INJ 2 MG/ML 2 ML VIAL ONE (11:25)
[2022-01-16] MEDS ORDERED: DIATRIZOATE MEGLUMINE 30% 100ML VIAL INSTIL ONE (11:27)
--- NOTE | 2022-01-16 11:33 | Operative Report ---
PG Post Operative Report Pre & Post Diagnosis Operation Date: 01/16/22 09:20 Pre-Op Diagnosis: Bladder Obstruction from Stone Post-Op Diagnosis: Bladder Obstruction from Stone I identified the patient and participated in the time-out.: Yes Procedure Operation Date: 01/16/22 09:20 Actual Procedures p urethral dilation, Cystoscopy, Right Retrograde Pyelogram(Right) - Jose Mtz MD Surgeon Jose Mtz MD Gas Main Fitter Helper none Estimated Blood Loss 0 Findings Consistent with Post-Op Diagnosis Specimens None Description of Procedure The patient was identified in the preoperative holding area, appropriate informed consents were reviewed and completed and the patient was transferred to the operative suite. Upon arrival, appropriate antibiotics and anesthesia were administered and the patient was placed in dorsal lithotomy position and prepped and draped in sterile fashion. Begin the case I attempted to pass a 22 Syrian cystoscope per urethra but he had a meatal stenosis that required dilation. I utilized steamy saddle dilators to dilate the meatus and extreme distal ureter to accommodate the scope. Passage revealed pendulous stricturing of the low degreenavigable with the scope. No bulbar strictures., No stones visualized within the urethra. After navigating through his sphincter, I inspected the prostate which was small and nonobstructive. There were no stones within the prostate. Entry into the bladder revealed healthy-appearing mucosa with some erythema around the right UO but no stones visualized within the bladder. I cannulated the right UO with a 5 Syrian open-ended catheter and performed retrograde pyelogram. There were no clear stones or filling defects appreciated. He had no real hydronephrosis. The collecting system filled promptly and then drained quickly after removal of the catheter. I believe he has passed his stone. If he has recurrent symptoms will need to obtain a CT to ensure that he does not have any residual fragments within the ureter that would not readily apparent on this retrograde pyelogram, however, my strong suspicion is that he has cleared the stone entirely. I performed a very careful withdrawal of the scope from the bladder and saw no stones or inflammation within the uretha aside from the previously described strictures. There were no complications. I attest to the content of the Intraoperative Record and any orders documented therein. Any exceptions are noted below.
--- NOTE | 2022-01-16 11:37 | Fluoroscopy Report ---
FL retrograde includes kub CLINICAL HISTORY: LT TECHNIQUE: 3 views were obtained with the C-arm in the OR with the above procedure. Total fluoroscopy time was 27.2 seconds. Total skin dose was 28.2 mGy. Comparison: None available at the time of this dictation. FINDINGS/IMPRESSION: Intraoperative images were obtained of right retrograde ureterogram. Please correlate with intraoperative fluoroscopy and operative report. ACT 112: Negative or not required by law. Electronically signed by: Selvin Villarreal M.D. 01/16/2022 11:36 AM
[2022-01-16] MEDS: fentaNYL citrate 100 MCG/2 ML VIAL IV PRN ×2 (11:55→12:00)
--- NOTE | 2022-01-16 12:15 | Anesthesiology Progress Note ---
Date of Service January 16, 2022 Anesthesia Post Procedure Vital Signs Vital Signs: Temp Pulse Pulse Resp BP Pulse Ox 01/16/22 12:10 49 L 15 134/57 L 94 01/16/22 12:00 46 L 16 135/69 97 01/16/22 11:50 43 L 15 131/64 99 01/16/22 11:40 36.2 C L 81 15 155/77 H 98 01/16/22 10:19 36.7 C 60 20 149/79 H 97 01/16/22 07:01 36.9 C 56 L 16 129/63 95 01/15/22 21:29 36.6 C 63 20 156/77 H 95 01/15/22 19:03 65 18 94 01/15/22 16:19 65 18 165/47 H 98 01/15/22 14:48 74 18 121/74 96 01/15/22 13:16 77 20 133/54 L 95 01/15/22 12:37 96 Pain Intensity Flank: Pain Intensity: 2 Penis: Pain Intensity: 2 Transfer of Care Handoff Completed per policy Notes Mental Status: alert / awake / arousable Patient Amnestic to Procedure: Yes Nausea / Vomiting: adequately controlled Pain: adequately controlled Airway Patency, RR, SpO2: stable & adequate BP & HR: stable & adequate Hydration State: stable & adequate Anesthetic Complications: no major complications apparent and Pt Satisfied with anesthetic care Notes: The patient is awake and comfortable. He did not tolerate MAC so had an Igel placed for the procedure.
[2022-01-16] MEDS ORDERED: PHENAZOPYRIDINE HCL 200 MG TAB PO STA (17:10)
--- NOTE | 2022-01-16 17:21 | Discharge Summary ---
Date of Service January 16, 2022 Admission HPI Per Admitting Provider 41 YOM with medical history of: Obesity (s/p gastric bypass 2016), ALISHA, DM II, HTN, kidney stone. Patient originally seen by urology in the beginning of January 2021 for renal stones following evaluation at OSH. The patient was planned to have cystoscopy and ureteroscopy with stone treatment this 01/18/22. He was empirically started on Ciprofloxacin as outpatient as well as started on Flomax. Over the weekend the patient had onset lower pelvic pain and decrease in ability to urinate. He has been able to dribble out urine, but incompletely able to void. He was seen in the EMD and had KUB performed, and Urology evaluation while in the EMD. Stone believed to be in his urethra, an attempt was made by EMD to pass Robert catheter where they were able to drain approx 500ml of urine but unable to maintain catheter in bladder. Hospitalist service was asked to admit patient for planned cystoscopy/ureteroscopy in the morning. Will continue with Flomax, allow for clear diet, NPO after midnight, and cont inue with q4 hour bladder scans. COVID test on admission is: Pending Principal Diagnosis Urethral stone, bladder outlet obstruction, urethral stricture Discharge Exam Constitutional WD/WN, vitals as above Eyes + anicteric sclerae Neck trachea midline, no thyromegaly Respiratory normal respiratory effort, lungs clear to auscultation Cardiovascular RRR, no murmur, no edema Chest (Breasts) Chest: normal inspection of chest Gastrointestinal (Abdomen) normal bowel sounds, soft, nontender, no hepatosplenomegaly Musculoskeletal Extremities: extremities normal to inspection; no cyanosis and no clubbing Skin no rashes, warm and dry Neurologic moves all extremities and awake; no focal motor deficits Psychiatric A+Ox3, euthymic affect Lymphatic no lymphedema Discharge Data Allergies Allergy/AdvReac Type Severity Reaction Status Date / Time ibuprofen Allergy Intermediate LIPS SWELL Verified 01/15/22 16:00 Consultations 01/15/22 15:57 ED Decision to Admit Stat 01/15/22 21:06 Consult Urology Routine Procedures Performed Operation Date: 01/16/22 09:20 Actual Procedures p Cystoscopy, Right Retrograde Pyelogram(Right) - Jose Mtz MD Ordered Studies 01/15/22 12:09 US renal/blad retro comp Stat 01/16/22 16:30 FL retrograde includes kub Routine Hospital Course (1) Unable to void: Presented with obstruction of urethra 2/2 stone and stricture with inability to pass robert Now s/p cystoscopy and no stone present, urethral stricture dilated Now passing urine without difficulty except for some expected dysuria and hematuria No fevers, no evidence of infection but will take Cipro x 5 days post-op due to intervention F/u with Urology as outpt - continue flomax -give pyridium prn for discharge (2) Kidney stones: As above - Urology consulted-appreciate management (3) HTN (hypertension): renal function normal -ok to continue lisinopril (4) Hypothyroidism: Continue with Synthroid (5) DMII (diabetes mellitus, type 2): Patient is not on oral therapy any more following his Gastric Bypass and weight loss glucose well controlled (6) ALISHA (obstructive sleep apnea): Home CPAP Dispo-dc to home Total Time Total Time Spent Total Time Spent (In Minutes): 45 min Discharge Plan Discharge Items Patient Disposition: Home - Self-Care Reason For Visit: BLADDER OBSTRUCTION FROM STONE Discharge Diagnosis: Urethral stricture and stone Condition on Discharge: Good Activity: Resume your previous activity Non-emergency contact: Primary Care Provider and Urologist Call non-emergency contact if: you have any medication questions and your symptoms worsen Follow-up/Referrals: Dean Bautista DO [Physician] - (Follow up within 1-2 weeks-Dr. Bautista'/Bibi's office should be contacting you with an appointment but please call them if you haven't heard within 1-2 days.) Rajani Kim D.O. [Primary Care Provider] - (Follow up within 1-2 weeks) Diet: Carb Consistent or DM2 Addtl Attending Provider Instructions: Please take Cipro twice a day for 5 more days. You can take Pyridium as needed for painful urination. Follow up with the Urologist within 1-2 weeks. Pending Studies at Discharge: No Stand-Alone Forms: My [employer], Smoking Cessation Medications and DC Order Prescriptions: New phenazopyridine [Pyridium] 200 mg tablet 200 mg PO Q8H PRN (Reason: painful urination) Qty: 6 RF: 0 Continued tamsulosin 0.4 mg capsule 0.4 mg PO DAILY Qty: 30 RF: 11 oxycodone-acetaminophen [Percocet] 5-325 mg tablet 1 tab PO TID PRN (Reason: pain) Qty: 10 RF: 0 levothyroxine 50 mcg tablet 50 mcg PO DAILY RF: 0 cyanocobalamin (vitamin B-12) [Vitamin B-12] 1,000 mcg Tablet, Sublingual 1,000 mcg SUBLINGUAL DAILY RF: 0 lisinopril 40 mg tablet 40 mg PO DAILY RF: 0 ondansetron 4 mg tablet,disintegrating 4 mg PO Q8H PRN (Reason: NAUSEA/VOMITING) RF: 0 Flintstones Complete Tablet,Chewable 2 tab PO DAILY RF: 0 ciprofloxacin HCl [Cipro] 500 mg tablet 500 mg PO BID 5 Days Qty: 10 RF: 0 Discharge Orders: Discharge Order (Routine); Ordered 01/16/22 Ordered By: Allison Jones Admission Data Admit Date/Time: 01/15/22 16:41 Attending Provider: Allison Jones Admit Provider: Garett Nolasco Primary Care Provider: Rajani Kim Other Providers: Garett Nolasco ; Dean Bautista Coding Level of Care Code D/C DAY MANAGEMENT >30 MINS Diagnoses Unable to void R33.9 Kidney stones N20.0 HTN (hypertension) I10 Hypothyroidism E03.9 DMII (diabetes mellitus, type 2) E11.9 ALISHA (obstructive sleep apnea) G47.33
--- NOTE | 2022-01-16 19:09 | Electrocardiogram Report ---
Test Reason : Blood Pressure : / mmHG Vent. Rate : 063 BPM Atrial Rate : 063 BPM P-R Int : 162 ms QRS Dur : 084 ms QT Int : 408 ms P-R-T Axes : 038 006 026 degrees QTc Int : 417 ms Normal sinus rhythm Normal ECG No previous ECGs available Confirmed by Jose Hamilton ([id number]) on 01/16/2022 7:09:21 PM Referred By: REFERRED SELF Confirmed By:Adrien Hamilton
== END 2022-01-16 18:09 | disposition home or self-care (01) ==
LOC: ED 11:56 → SUATTDRO 16:41 → 3W 16:41 → INTOOBSV 16:41 → 3W 20:15

== ENCOUNTER 2022-05-18 02:08 | Observation (INO) ==
[2022-05-18] MEDS ORDERED: NITROGLYCERIN 2% OINTMENT 30GM TUBE EXT STA (02:57)
[2022-05-18] MEDS ORDERED: SODIUM CHLORIDE 0.9% 1000ML 1,000 ML IV SCH (03:00)
[2022-05-18 03:05] LABS: Basophils # (auto) 0.07 K/uL (0-0.2); Basophils % (auto) 0.7 %; Eosinophils # (auto) 0.26 K/uL (0-0.50); Eosinophils % (auto) 2.7 %; Hematocrit (blood only) 40.3 % (40.1-51.0); Hemoglobin 13.6 g/dl (14.0-18.0); Immature Granulocytes # (auto) 0.05 K/uL (0.00-0.02); Immature Granulocytes % (auto) 0.5 %; Lymphocytes # (auto) 1.97 K/uL (1.2-3.4); Lymphocytes % (auto) 20.1 %; Mean Corpuscular Hemoglobin 31.1 pg (25.0-34.0); Mean Corpuscular Hgb Conc 33.7 g/dL (32.0-36.0); Mean Corpuscular Volume 92.2 fL (80.0-100.0); Mean Platelet Volume 12.1 fL (9.4-12.4); Monocytes % (auto) 8.2 %; Neutrophils # (auto) 6.66 K/uL (1.4-6.5); Neutrophils % (auto) 67.8 %; Platelet Count 136 K/uL (130-400); RDW Standard Deviation 40.6 fL (36.4-46.3); Red Blood Count 4.37 M/uL (4.63-6.08); White Blood Count 9.81 K/ul (4.8-10.8)
--- NOTE | 2022-05-18 03:13 | Emergency Department Note ---
History of Present Illness General Chief complaint: Chest Pain Stated complaint: CHEST PAIN Time Seen by Provider: 05/18/22 02:50 History of Present Illness Maximum Pain Intensity: 9 This is a 41-year-old male presenting to the emergency department for evaluation of central chest pain for the past 8 hours. The patient initially had some mild pain in his left side head and left side neck that he felt was a simple headache. Shortly thereafter he began having some discomfort in his chest and dyspnea with ambulation. The patient went to sleep, and awoke with persistent pain in the chest. He rates the pain a 9/10 and feels like it is a heaviness. He does not have any injury or trauma. The patient is morbidly obese, currently weighing around 450 pounds. He does have a history of gastric bypass and previously weighed over 700 pounds. Because of his gastric bypass he is not ab le to take ibuprofen. The patient does report having a heart catheterization 7 years ago for similar symptoms that was reportedly normal through the [facility] [place] system. The patient is diabetic and feels that his sugar has been good. No recent travel history. Home Medications Medication Instructions Recorded Confirmed Type cyanocobalamin (vitamin B-12) 1,000 mcg sublingual DAILY 01/07/22 01/15/22 History 1,000 mcg sublingual tablet levothyroxine 50 mcg tablet 50 mcg PO DAILY 01/07/22 01/15/22 History lisinopril 40 mg tablet 40 mg PO DAILY 01/07/22 01/15/22 History ondansetron 4 mg disintegrating 4 mg PO Q8H PRN NAUSEA/VOMITING 01/07/22 01/15/22 History tablet pediatric multivitamin no.76 2 tab PO DAILY 01/07/22 01/15/22 History (Flintstones Complete chewable tablet) oxycodone-acetaminophen 5 mg-325 1 tab PO TID PRN pain #10 tabs 01/11/22 01/15/22 Rx mg tablet (Percocet) tamsulosin 0.4 mg capsule 0.4 mg PO DAILY #30 caps 01/14/22 01/15/22 Rx ciprofloxacin HCl 500 mg tablet 500 mg PO BID 5 days #10 tabs 01/16/22 01/15/22 Rx (Cipro) phenazopyridine 200 mg tablet 200 mg PO Q8H PRN painful 01/16/22 Rx (Pyridium) urination #6 tabs Allergies Allergy/AdvReac Type Severity Reaction Status Date / Time ibuprofen Allergy Intermediate LIPS SWELL Verified 01/15/22 16:00 Past Med/Surg History Medical History DMII (diabetes mellitus, type 2) HTN (hypertension) Hypothyroidism Kidney stones Morbid obesity Renal colic on right side Surgical History H/O gastric bypass Family History Other Family history non-contributory Social History Smoking Status: Never smoker Hx Alcohol Use: No Hx Substance Use: No Preferred Language: Ghanaian Communication Ability: Effective 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 Beliefs That Will Affect Care: None Current Living Situation: Spouse Feels Safe at Home: Yes Assistive Devices: None Review of Systems A total of 10 systems reviewed and were otherwise negative Physical Exam Vital Signs Vital Signs - 24 hr 05/18/22 02:14 05/18/22 02:27 05/18/22 02:28 Temperature 36.6 C Temperature Source Oral Pulse Rate 87 Pulse Rate [Apical] 78 Respiratory Rate 22 22 Respiratory Effort / Characteristics Non-Labored Spontaneous Respiratory Depth Shallow Normal Respiratory Pattern Regular Blood Pressure [Right Arm] 179/119 H Blood Pressure Mean [Right Arm] 139 Blood Pressure Position [Right Arm] Pulse Oximetry 98 96 96 Oxygen Delivery Method Room Air Room Air Room Air Sepsis Recent Fever Within 48 Hours No Sepsis New/Unexplained Change in Mental Status No Sepsis Action Taken by Nursing No Action Required 05/18/22 03:15 05/18/22 03:15 05/18/22 05:00 Temperature Temperature Source Pulse Rate 78 Pulse Rate [Apical] 73 67 Respiratory Rate 14 20 20 Respiratory Effort / Characteristics Non-Labored Spontaneous Non-Labored Spontaneous Respiratory Depth Normal Normal Respiratory Pattern Regular Regular Blood Pressure [Right Arm] 158/95 H 134/61 Blood Pressure Mean [Right Arm] 116 85 Blood Pressure Position [Right Arm] Sitting Pulse Oximetry 97 96 94 Oxygen Delivery Method Room Air Room Air Room Air Sepsis Recent Fever Within 48 Hours Sepsis New/Unexplained Change in Mental Status Sepsis Action Taken by Nursing VITALS: Vitals are noted on the nurse's note and reviewed by myself. Vital signs stable. GENERAL: Morbidly obese, white male, who is in no acute distress and resting comfortably. Patient is cooperative with the examination. HEAD: Normocephalic atraumatic. NECK: Supple without nuchal rigidity. No lymphadenopathy. No thyromegaly. Ce rvical spine is nontender. HEART: Regular rate and rhythm without murmurs gallops or rubs. LUNGS: Clear to auscultation bilaterally without wheezes, rales or rhonchi. No retractions or accessory muscle use. ABDOMEN: Positive normal bowel sounds x 4. Soft, nontender, without masses or organomegaly. No guarding or rebound tenderness. MUSCULOSKELETAL: No muscle atrophy, erythema, or edema noted. Full range of motion in all extremities. Course Administered Medications Sodium Chloride (Nss 1000ml) 1,000 mls @ 999 mls/hr IV .Q1H1M ONE Stop: 05/18/22 07:15 Last Admin: 05/18/22 06:18 Dose: 999 mls/hr Documented By: MED Discontinued Medications Al Hydrox/Mg Hydrox/Simethicone (Gi Cocktail Ed Use) 1 dose PO ONE ONE Stop: 05/18/22 04:40 Last Admin: 05/18/22 04:48 Dose: 1 dose Documented By: MED Hydromorphone HCl (Hydromorphone Inj 0.5 Mg/0.5 Ml Syr) 0.25 mg IV NOW STA Stop: 05/18/22 05:40 Last Admin: 05/18/22 05:46 Dose: 0.25 mg Documented By: MED Sodium Chloride (Nss 1000ml) 1,000 mls @ 999 mls/hr IV .Q1H1M ROMEO Stop: 05/18/22 04:00 Last Infusion: 05/18/22 05:53 Dose: 0 mls/hr Documented By: edge brusher: 05/18/22 03:09 Dose: 999 mls/hr Documented By: MED Acetaminophen (Ofirmev) 1,000 mg in 100 mls @ 400 mls/hr IV NOW STA Stop: 05/18/22 03:52 Last Infusion: 05/18/22 05:53 Dose: 0 mls/hr Documented By: edge brusher: 05/18/22 03:42 Dose: 400 mls/hr Documented By: MED Nitroglycerin (Nitroglycerin 2% Ointment 30gm Tube) 1 inch EXT NOW STA Stop: 05/18/22 02:58 Last Admin: 05/18/22 03:07 Dose: 1 inch Documented By: KAILEY Ondansetron HCl (Ondansetron Inj 2 Mg/Ml 2 Ml Vial) 4 mg IV NOW STA Stop: 05/18/22 03:39 Last Admin: 05/18/22 03:41 Dose: 4 mg Documented By: MED Medical Decision Making Differential Diagnosis Differential diagnosis includes, but is not limited to: Myocardial infarction, dysrhythmia, pericarditis, pneumothorax, aortic aneurysm/dissection, DVT/PE, anxiety, GERD, PUD, electrolyte imbalance, thyroid disorder, pneumonia, bronchitis, pancreatitis, and others Laboratory Data Result diagrams: 05/18/22 02:20 05/18/22 02:20 Lab Results 05/18/22 05/18/22 05/18/22 Range/Units 02:20 02:20 02:20 WBC 9.81 (4.8-10.8) K/ul RBC 4.37 L (4.63-6.08) M/uL Hgb 13.6 L (14.0-18.0) g/dl Hct 40.3 (40.1-51.0) % MCV 92.2 (80.0-100.0) fL MCH 31.1 (25.0-34.0) pg MCHC 33.7 (32.0-36.0) g/dL RDW Std Deviation 40.6 (36.4-46.3) fL RDW Coeff of Ritesh 12.0 (11.5-14.5) % Plt Count 136 (130-400) K/uL MPV 12.1 (9.4-12.4) fL Immature Gran % (Auto) 0.5 % Neut % (Auto) 67.8 % Lymph % (Auto) 20.1 % [place] % (Auto) 8.2 % Eos % (Auto) 2.7 % Baso % (Auto) 0.7 % Neut # (Auto) 6.66 H (1.4-6.5) K/uL Lymph # (Auto) 1.97 (1.2-3.4) K/uL [place] # (Auto) 0.80 (0.24-0.82) K/uL Eos # (Auto) 0.26 (0-0.50) K/uL Baso # (Auto) 0.07 (0-0.2) K/uL Immature Gran # (Auto) 0.05 H (0.00-0.02) K/uL PT 10.6 (9.0-12.0) Seconds INR 1.0 (0.9-1.1) APTT 25.7 (21.0-31.0) Seconds PTT Ratio 0.9 D-Dimer 420 (0-500) ug/L FEU Sodium 138 (136-145) mmol/L Potassium 4.2 (3.5-5.1) mmol/L Chloride 102 (98-107) mmol/L Carbon Dioxide 30 (21-32) mmol/L Anion Gap 6 (3-11) BUN 14 (6-23) mg/dl Creatinine 0.70 (0.6-1.4) mg/dl Est Cr Clr Drug Dosing 246.8 ml/min Est GFR ( Amer) 136.8 ml/min Est GFR (Non-Af Amer) 118.0 ml/min BUN/Creatinine Ratio 20.0 (10-20) Glucose 117 H (70-99(Fasting)) mg/dl Calcium 9.3 (8.5-10.1) mg/dl Total Bilirubin 0.5 (0.2-1.0) mg/dl AST 17 (13-39) U/L ALT 33 (7-52) U/L Alkaline Phosphatase 51 (34-104) U/L Troponin I High Sens 4.6 (0-20) pg/ml Total Protein 7.0 (6.0-8.3) gm/dl Albumin 4.3 (3.4-5.0) gm/dl Globulin 2.7 (2.5-4.0) gm/dl Albumin/Globulin Ratio 1.6 (0.9-2) Lipase 22 (11-82) U/L Urine Color Urine Appearance (Clear) Urine pH (4.5-7.5) Ur Specific [place] (1.000-1.030) Urine Protein (Negative) Urine Glucose (UA) (Negative) Urine Ketones (Negative) Urine Blood (Negative) Urine Nitrite (Negative) Urine Bilirubin (Negative) Urine Urobilinogen (Negative) Ur Leukocyte Esterase (Negative) SARS-CoV-2, RNA, NAAT (NEGATIVE) 05/18/22 05/18/22 Range/Units 03:05 03:10 WBC (4.8-10.8) K/ul RBC (4.63-6.08) M/uL Hgb (14.0-18.0) g/dl Hct (40.1-51.0) % MCV (80.0-100.0) fL MCH (25.0-34.0) pg MCHC (32.0-36.0) g/dL RDW Std Deviation (36.4-46.3) fL RDW Coeff of Ritesh (11.5-14.5) % Plt Count (130-400) K/uL MPV (9.4-12.4) fL Immature Gran % (Auto) % Neut % (Auto) % Lymph % (Auto) % [place] % (Auto) % Eos % (Auto) % Baso % (Auto) % Neut # (Auto) (1.4-6.5) K/uL Lymph # (Auto) (1.2-3.4) K/uL [place] # (Auto) (0.24-0.82) K/uL Eos # (Auto) (0-0.50) K/uL Baso # (Auto) (0-0.2) K/uL Immature Gran # (Auto) (0.00-0.02) K/uL PT (9.0-12.0) Seconds INR (0.9-1.1) APTT (21.0-31.0) Seconds PTT Ratio D-Dimer (0-500) ug/L FEU Sodium (136-145) mmol/L Potassium (3.5-5.1) mmol/L Chloride (98-107) mmol/L Carbon Dioxide (21-32) mmol/L Anion Gap (3-11) BUN (6-23) mg/dl Creatinine (0.6-1.4) mg/dl Est Cr Clr Drug Dosing ml/min Est GFR ( Amer) ml/min Est GFR (Non-Af Amer) ml/min BUN/Creatinine Ratio (10-20) Glucose (70-99(Fasting)) mg/dl Calcium (8.5-10.1) mg/dl Total Bilirubin (0.2-1.0) mg/dl AST (13-39) U/L ALT (7-52) U/L Alkaline Phosphatase (34-104) U/L Troponin I High Sens (0-20) pg/ml Total Protein (6.0-8.3) gm/dl Albumin (3.4-5.0) gm/dl Globulin (2.5-4.0) gm/dl Albumin/Globulin Ratio (0.9-2) Lipase (11-82) U/L Urine Color Yellow Urine Appearance Clear (Clear) Urine pH 6.0 (4.5-7.5) Ur Specific [place] 1.023 (1.000-1.030) Urine Protein Negative (Negative) Urine Glucose (UA) Negative (Negative) Urine Ketones Negative (Negative) Urine Blood Negative (Negative) Urine Nitrite Negative (Negative) Urine Bilirubin Negative (Negative) Urine Urobilinogen Negative (Negative) Ur Leukocyte Esterase Negative (Negative) SARS-CoV-2, RNA, NAAT NEGATIVE (NEGATIVE) ECG Data Attestation: I personally reviewed and interpreted this ECG as follows: Indication: + chest pain Additional Comments: Poor baseline Normal sinus rhythm @[address] elevation When compared with ECG of 16-JAN-2022 05:46, no significant change MDM Narrative Physical exam and history were performed. Nursing notes, EMR, and Medication List were personally reviewed. Patient appears to have chest pain symptoms bringing him to the ER. The patient does have several comorbidities including diabetes, hypertension, and sleep apnea. IV access was established and labs were obtained. Patient was hydrated normal saline and Nitropaste was applied. He was given IV Tylenol and a GI cocktail for comfort. An order was placed for continuous cardiac monitoring. The monitor shows a rate of 67 with normal sinus rhythm. Patient blood work is as above and was reviewed. He does not have a significantly elevated white blood cell count, gross anemia, bandemia, or significant electrolyte imbalance. Lipase and transaminases are not diagnostic. Troponin and D-dimer x1 are both negative. Patient continued to have reports of pain despite the Nitropaste, Tylenol, and GI cocktail. The discomfort continues to be central in his chest. Out of concern for possible cardiac etiology and his comorbidities the case was discussed with the on-call hospitalist team. Please see their dictation for further patient course, plan, disposition. The chart was completed utilizing [employer] Speech Voice Recognition Software. Grammatical errors, random word insertions, pronoun errors, and incomplete sentences are an occasional consequence of this system due to software limitations, ambient noise, and hardware issues. Any formal questions or concerns about the content, text, or information contained within the body of this dictation should be directly addressed to the provider for clarification. . Impression & Plan Atypical chest pain, Morbid obesity, DMII (diabetes mellitus, type 2), ALISHA (o bstructive sleep apnea) Discharge Plan Visit Data Chief Complaint: Chest Pain Stated Complaint: CHEST PAIN ED Provider: Gisela Ortiz ED Midlevel Provider: Alexander Silveira Discharge Problem: Atypical chest pain, Morbid obesity, DMII (diabetes mellitus, type 2), ALISHA (obstructive sleep apnea) Forms Stand Alone Forms: [facility] Prescriptions Prescriptions: No Action tamsulosin 0.4 mg capsule 0.4 mg PO DAILY Qty: 30 11RF oxycodone-acetaminophen [Percocet] 5-325 mg tablet 1 tab PO TID PRN (Reason: pain) Qty: 10 0RF levothyroxine 50 mcg tablet 50 mcg PO DAILY cyanocobalamin (vitamin B-12) 1,000 mcg Tablet, Sublingual 1,000 mcg SUBLINGUAL DAILY lisinopril 40 mg tablet 40 mg PO DAILY ondansetron 4 mg tablet,disintegrating 4 mg PO Q8H PRN (Reason: NAUSEA/VOMITING) Flintstones Complete Tablet,Chewable 2 tab PO DAILY phenazopyridine [Pyridium] 200 mg tablet 200 mg PO Q8H PRN (Reason: painful urination) Qty: 6 0RF ciprofloxacin HCl [Cipro] 500 mg tablet 500 mg PO BID 5 Days Qty: 10 0RF Rx Instructions: STARTED 01/14/22 FOR 7 DAYS Referrals Referrals: Rajani Kim D.O. [Primary Care Provider] -
[2022-05-18 03:18] LABS: D Dimer 420 ug/L FEU (0-500); Partial Thromboplastin Ratio 0.9; Partial Thromboplastin Time 25.7 Seconds (21.0-31.0); Prothrombin Time 10.6 Seconds (9.0-12.0)
[2022-05-18 03:21] LABS: Albumin Globulin Ratio 1.6 (0.9-2); Albumin Level 4.3 gm/dl (3.4-5.0); Bilirubin,Total 0.5 mg/dl (0.2-1.0); Calcium 9.3 mg/dl (8.5-10.1); Creatinine Clr Calc Pharmacy 246.8 ml/min; Est GFR (African American) 136.8 ml/min; Globulin 2.7 gm/dl (2.5-4.0); Potassium 4.2 mmol/L (3.5-5.1)
[2022-05-18 03:22] LABS: Troponin I High Sensitivity 4.6 pg/ml (0-20)
[2022-05-18 03:34] LABS: Appearance Urine Clear (Clear); Bilirubin Urine Negative (Negative); Blood Urine Negative (Negative); Color Urine Yellow; Glucose Urine UA Negative (Negative); Ketones Urine Negative (Negative); Leukocyte Esterase Urine Negative (Negative); Nitrite Urine Negative (Negative); Protein Urine Negative (Negative); Specific Gravity Urine 1.023 (1.000-1.030); Urobilinogen Urine Negative (Negative)
[2022-05-18] MEDS ORDERED: ACETAMINOPHEN 1,000 MG/100 ML VIAL IV STA (03:38)
[2022-05-18] MEDS ORDERED: ONDANSETRON INJ 2 MG/ML 2 ML VIAL IV STA (03:38)
[2022-05-18] MEDS ORDERED: GI COCKTAIL ED USE PO ONE (04:39)
[2022-05-18] MEDS ORDERED: HYDROmorphone INJ 0.5 MG/0.5 ML SYR IV STA (05:39)
[2022-05-18] MEDS ORDERED: HYDROmorphone INJ 0.5 MG/0.5 ML SYR IV PRN (06:08)
[2022-05-18] MEDS ORDERED: PANTOprazole 40 MG in SYRINGE 0 ML IV ONE (06:15)
[2022-05-18] MEDS ORDERED: FAMOTIDINE 20 MG in SYRINGE 3 ML IV ONE (06:15)
[2022-05-18] MEDS ORDERED: SODIUM CHLORIDE 0.9% 1000ML 1,000 ML IV ONE (06:15)
--- NOTE | 2022-05-18 06:41 | History & Physical Report ---
Date of Service May 18, 2022 Assessment & Plan (1) Atypical chest pain: Plan: Midsternal/epigastric chest pain- Admit to monitored bed for rhythm monitoring, serial cardiac enzymes and a complete ECHO NPO HS Troponin 4.6 Differential including but not limited to: cardiac ischemia, gastritis, esophagitis, gastric or duodenal ulcer, anastomotic ulcer, duodenitis, other NTP initially placed by ED was removed due to relative Hypotension after dilaudid 0.25 IV given with SBP decrease to 83. Order CTA chest/abdomen and pelvis. Acetaminophen 1g IV q8h prn mild pain or fever. First dose had no effect on his pain Dilaudid 0.25mg IV q3h PRN moderate pain. First dose had mild improvement Dilaudid 0.5mg IV q3h PRN severe pain. Not given yet due to low bp. Received NSS 1 liter bolus from the ED, and giving a 2nd liter now, followed by NSS with KCl 20 MEQ @ 100 mls/hr Pantoprazole 40mg IV BId, with first dose now Famotidine 20mg IV BID, with first dose now Consult gastroenterology (2) Morbid obesity: Plan: S/P gastric bypass 6 years ago With the severity of his symptoms and acute onset, concerned regarding the inflammation and/or ulcers as noted above. He reports that his weight has changed from 700 to 450 pounds s/p surgery. (3) ALISHA (obstructive sleep apnea): Plan: CPAP HS as needed (4) DMII (diabetes mellitus, type 2): Plan: Primarily diet controlled and gastric bypass Glucose 117 on Labs No accuchecks unless AM labs go up (5) HTN (hypertension): Plan: hold lisinopril (6) Hypothyroidism: Plan: hold levothyroxine History of Present Illness Chief Complaint: The patient presents to the ED with history of going to bed at 8PM, and being awoken at 1AM by severe midsternal/epigastric pain that he has never experienced before. Primary Care Provider: Rajani Kim The patient is a 41 yo male with PMH including morbid obesity, s/p gastric bypass 6 years ago, HTN, ALISHA, DM, Hypothyroidism, B-12 deficiency, BPH with LUTS and chronic pain syndrome. He presents to the ED with severe epigastric/sternal pain as above. He denies any recent travels, sick exposure, change in dietary habits or activities. Allergies Allergy/AdvReac Type Severity Reaction Status Date / Time ibuprofen Allergy Intermediate LIPS SWELL Verified 01/15/22 16:00 Home Medications Medication Instructions Recorded Confirmed Type cyanocobalamin (vitamin B-12) 1,000 mcg sublingual DAILY 01/07/22 01/15/22 History 1,000 mcg sublingual tablet levothyroxine 50 mcg tablet 50 mcg PO DAILY 01/07/22 01/15/22 History lisinopril 40 mg tablet 40 mg PO DAILY 01/07/22 01/15/22 History ondansetron 4 mg disintegrating 4 mg PO Q8H PRN NAUSEA/VOMITING 01/07/22 01/15/22 History tablet pediatric multivitamin no.76 2 tab PO DAILY 01/07/22 01/15/22 History (Flintstones Complete chewable tablet) oxycodone-acetaminophen 5 mg-325 1 tab PO TID PRN pain #10 tabs 01/11/22 01/15/22 Rx mg tablet (Percocet) tamsulosin 0.4 mg capsule 0.4 mg PO DAILY #30 caps 01/14/22 01/15/22 Rx ciprofloxacin HCl 500 mg tablet 500 mg PO BID 5 days #10 tabs 01/16/22 01/15/22 Rx (Cipro) phenazopyridine 200 mg tablet 200 mg PO Q8H PRN painful 01/16/22 Rx (Pyridium) urination #6 tabs Past Med/Surg History Medical History DMII (diabetes mellitus, type 2) HTN (hypertension) Hypothyroidism Kidney stones Morbid obesity Renal colic on right side Surgical History H/O gastric bypass Family History Other Family history non-contributory Social History Smoking Status: Never smoker Hx Alcohol Use: No Hx Substance Use: No Preferred Language: Chadian Communication Ability: Effective 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 Beliefs That Will Affect Care: None Current Living Situation: Spouse Feels Safe at Home: Yes Assistive Devices: None Results & Data Results & Data ([place]) Vital Signs (Past 12 Hours) Vital Signs Temp Pulse Pulse Resp BP Pulse Ox O2 Del Method 05/18/22 05:00 67 20 134/61 94 Room Air 05/18/22 03:15 78 20 96 Room Air 05/18/22 03:15 73 14 158/95 H 97 Room Air 05/18/22 02:28 96 Room Air 05/18/22 02:27 78 22 179/119 H 96 Room Air 05/18/22 02:14 36.6 C 87 22 98 Room Air Laboratory Results Laboratory Results WBC 9.81 K/ul (4.8-10.8) 05/18/22 02:20 RBC 4.37 M/uL (4.63-6.08) L 05/18/22 02:20 Hgb 13.6 g/dl (14.0-18.0) L 05/18/22 02:20 Hct 40.3 % (40.1-51.0) 05/18/22 02:20 MCV 92.2 fL (80.0-100.0) 05/18/22 02:20 MCH 31.1 pg (25.0-34.0) 05/18/22 02:20 MCHC 33.7 g/dL (32.0-36.0) 05/18/22 02:20 RDW Std Deviation 40.6 fL (36.4-46.3) 05/18/22 02:20 RDW Coeff of Ritesh 12.0 % (11.5-14.5) 05/18/22 02:20 Plt Count 136 K/uL (130-400) 05/18/22 02:20 MPV 12.1 fL (9.4-12.4) 05/18/22 02:20 Immature Gran % (Auto) 0.5 % 05/18/22 02:20 Neut % (Auto) 67.8 % 05/18/22 02:20 Lymph % (Auto) 20.1 % 05/18/22 02:20 [place] % (Auto) 8.2 % 05/18/22 02:20 Eos % (Auto) 2.7 % 05/18/22 02:20 Baso % (Auto) 0.7 % 05/18/22 02:20 Neut # (Auto) 6.66 K/uL (1.4-6.5) H 05/18/22 02:20 Lymph # (Auto) 1.97 K/uL (1.2-3.4) 05/18/22 02:20 [place] # (Auto) 0.80 K/uL (0.24-0.82) 05/18/22 02:20 Eos # (Auto) 0.26 K/uL (0-0.50) 05/18/22 02:20 Baso # (Auto) 0.07 K/uL (0-0.2) 05/18/22 02:20 Immature Gran # (Auto) 0.05 K/uL (0.00-0.02) H 05/18/22 02:20 PT 10.6 Seconds (9.0-12.0) 05/18/22 02:20 INR 1.0 (0.9-1.1) 05/18/22 02:20 APTT 25.7 Seconds (21.0-31.0) 05/18/22 02:20 PTT Ratio 0.9 05/18/22 02:20 D-Dimer 420 ug/L FEU (0-500) 05/18/22 02:20 Sodium 138 mmol/L (136-145) 05/18/22 02:20 Potassium 4.2 mmol/L (3.5-5.1) 05/18/22 02:20 Chloride 102 mmol/L (98-107) 05/18/22 02:20 Carbon Dioxide 30 mmol/L (21-32) 05/18/22 02:20 Anion Gap 6 (3-11) 05/18/22 02:20 BUN 14 mg/dl (6-23) 05/18/22 02:20 Creatinine 0.70 mg/dl (0.6-1.4) 05/18/22 02:20 Est Cr Clr Drug Dosing 246.8 ml/min 05/18/22 02:20 Est GFR ( Amer) 136.8 ml/min 05/18/22 02:20 Est GFR (Non-Af Amer) 118.0 ml/min 05/18/22 02:20 BUN/Creatinine Ratio 20.0 (10-20) 05/18/22 02:20 Glucose 117 mg/dl (70-99(Fasting)) H 05/18/22 02:20 Calcium 9.3 mg/dl (8.5-10.1) 05/18/22 02:20 Total Bilirubin 0.5 mg/dl (0.2-1.0) 05/18/22 02:20 AST 17 U/L (13-39) 05/18/22 02:20 ALT 33 U/L (7-52) 05/18/22 02:20 Alkaline Phosphatase 51 U/L (34-104) 05/18/22 02:20 Troponin I High Sens 4.6 pg/ml (0-20) 05/18/22 02:20 Total Protein 7.0 gm/dl (6.0-8.3) 05/18/22 02:20 Albumin 4.3 gm/dl (3.4-5.0) 05/18/22 02:20 Globulin 2.7 gm/dl (2.5-4.0) 05/18/22 02:20 Albumin/Globulin Ratio 1.6 (0.9-2) 05/18/22 02:20 Lipase 22 U/L (11-82) 05/18/22 02:20 Urine Color Yellow 05/18/22 03:10 Urine Appearance Clear (Clear) 05/18/22 03:10 Urine pH 6.0 (4.5-7.5) 05/18/22 03:10 Ur Specific [place] 1.023 (1.000-1.030) 05/18/22 03:10 Urine Protein Negative (Negative) 05/18/22 03:10 Urine Glucose (UA) Negative (Negative) 05/18/22 03:10 Urine Ketones Negative (Negative) 05/18/22 03:10 Urine Blood Negative (Negative) 05/18/22 03:10 Urine Nitrite Negative (Negative) 05/18/22 03:10 Urine Bilirubin Negative (Negative) 05/18/22 03:10 Urine Urobilinogen Negative (Negative) 05/18/22 03:10 Ur Leukocyte Esterase Negative (Negative) 05/18/22 03:10 SARS-CoV-2, RNA, NAAT NEGATIVE (NEGATIVE) 05/18/22 03:05 Code Status & VTE Plan Code Status full code VTE Prophylaxis Plan VTE Prophylaxis will be ordered: Yes PG Care Time/CCT Total # of Minutes Spent Total Time Spent with Patient: Total time spent is greater than 50% in coordination of care (as documented) at patient's floor/unit and/or counseling patient: Coding Level of Care Code 59418 Initial Inpt Care Lvl 3 Diagnoses Atypical chest pain R07.89 Morbid obesity E66.01 ALISHA (obstructive sleep apnea) G47.33 DMII (diabetes mellitus, type 2) E11.9 HTN (hypertension) I10 Hypothyroidism E03.9
--- NOTE | 2022-05-18 07:20 | XRay Report ---
XR chest 1V portable CLINICAL HISTORY: Atypical chest pain. COMPARISON STUDY: No previous studies for comparison. FINDINGS: Lung volumes are mildly diminished. No pneumothorax or pleural effusion is present. No cons olidation is identified. Moderate enlargement of the cardiac silhouette is accentuated given techniqu e. There is pulmonary vascular congestion and possible interstitial edema. IMPRESSION: Cardiomegaly with pulmonary vascular congestion and possible interstitial edema. ACT 112: Negative or not required by law. Electronically signed by: Timur Cohen M.D. 05/18/2022 7:19 AM
[2022-05-18] MEDS ORDERED: HYDROmorphone INJ 0.5 MG/0.5 ML SYR ONE (07:45)
[2022-05-18] MEDS ORDERED: OPTIRAY 320 500ml IV ONE (08:14)
--- NOTE | 2022-05-18 08:44 | CT Scan Report ---
CT angio abdomen pelvis w con, CT angio chest w con CLINICAL HISTORY: 41 years-old Male with severe epigastric pain . Acute severe chest and epigastri c abdominal pain COMPARISON STUDY: Chest radiograph of same day TECHNIQUE: Following the IV administration of 118 mL cc of Optiray, CT angiogram of the chest, abdome n and pelvis was obtained. Images are reviewed in the axial, sagittal, and coronal planes. 3-D MIPS i mages are created and assessed. All measurements were obtained according to NASCET criteria. IV contr ast was administered without complication. A dose lowering technique was utilized adhering to the pr inciples of ALARA. CT DOSE: 2568.34 mGy.cm FINDINGS: Limited exam secondary to patient body habitus. CTA CHEST: Mild cardiomegaly with small pericardial effusion measuring up to 1 cm. The attenuation of the fluid measures above water. Mild coronary artery calcifications. There is no thoracic aortic aneurysm or di ssection. No mediastinal hematoma. The opacified pulmonary artery is unremarkable. CT CHEST: No thyroid nodule or lymphadenopathy. No pneumothorax, pleural effusion, airspace consolidation or ov ert pulmonary edema. Respiratory motion artifact limits evaluation of the lungs. There are no suspici ous pulmonary nodules or masses identified. Unremarkable soft tissues. Degenerative changes of the sp ine. No acute fracture identified. CTA ABDOMEN/PELVIS: No abdominal aortic aneurysm or dissection. There is no significant atherosclerosis. The celiac trunk , renal arteries, superior and inferior mesenteric arteries appear normal. The iliac and imaged femor al arteries are within normal limits. CT ABDOMEN/PELVIS: No pneumatosis or pneumoperitoneum. Hepatosplenomegaly with hepatic steatosis. The liver measures up to 26 cm in length. The spleen measures up to 14 cm in length. No evidence of cirrhosis or focal hepa tic mass. Unremarkable pancreas and adrenal glands. Distended gallbladder. 3 mm nonobstructing calculus of the superior pole left kidney. Indeterminate 2.6 x 2.2 cm exophytic l esion of the lateral interpolar right kidney with Hounsfield unit measuring 50. 1.2 cm hypodensity of the superior pole right kidney, possibly a cyst. Unremarkable urinary bladder. Mild bilateral inguin al adenopathy measuring up to 1.2 cm, likely reactive. Prior gastric bypass. No bowel obstruction or bowel wall thickening. The appendix is not visualized. Unremarkable soft tissues. Degenerative change s of the spine. IMPRESSION: 1. Small mildly complex pericardial effusion. Correlate clinically to exclude pericarditis. Hemoperic ardium considered less likely. 2. Unremarkable appearance of the thoracic and abdominal aorta without aneurysm or dissection. 3. Indeterminate 2.6 x 2.2 cm right renal lesion. Correlation with a nonemergent follow-up ultrasound recommended to exclude a solid lesion. 4. No bowel obstruction or bowel wall thickening. 5. Gastric bypass. 6. Hepatosplenomegaly with hepatic steatosis. ACT 112: Negative or not required by law. The above report was generated using voice recognition software. It may contain grammatical, syntax o r spelling errors. Electronically signed by: Rickie Barnes M.D. 05/18/2022 8:42 AM
[2022-05-18] MEDS ORDERED: ACETAMINOPHEN 1000 MG/100 ML IV IV PRN (09:11)
[2022-05-18] MEDS ORDERED: ONDANSETRON INJ 2 MG/ML 2 ML VIAL IV PRN (09:36)
[2022-05-18] MEDS ORDERED: NSS + 20MEQ KCL 20 MEQ/1,000 ML BAG IV SCH (09:45)
--- NOTE | 2022-05-18 10:00 | Gastrointestinal Consultation ---
Date of Consultation May 18, 2022 Assessment & Plan (1) Atypical chest pain: Can implement IV Protonix 40 mg BID, IV Famotidine 20 mg BID, & Carafate 1 gm four times daily, however symptoms are atypical for upper GI source of pain. Would advise further hospitalist/cardiology evaluation of CTA findings of pericardial effusion. Supervising Physician Co-Signing Physician Notes Agree with PARTHA Diane as above Gen: Morbidly obese, cooperative, pleasant Chest: Decreased breath sounds throughout, most likely secondary to body habitus CVS: Distant heart sounds Abd: Soft, NT, ND Continue PPI/H2RA/Carafate Appreciate Cardiology input Continue supportive care History of Present Illness Reason for Consultation: Chest Pain Attending Physician: Avery Marshall MD History of Present Illness Patient is a 41 yo male with PMH of DM2, ALISHA, HTN, hypothyroidism, & morbid obesity. He reportedly had gastric bypass surgery and his weight decreased from 700+ to 450 lbs. He presented to [facility] due to chest pain. He notes that he had developed substernal chest pain along with left sided head and neck pain. Shortly after that he began noticing he was having difficulty breathing. He notes he feels short of breath. He notes that he continues to have significant chest discomfort and pain with inspiration. He describes the pain as a heaviness/squeezing sensation. He denies heartburn, reflux, melena, n/v, or diarrhea. He does not take NSAIDs. He denies any known recent viral illness. In the ED, he had unremarkable troponins. EKG without acute findings. H/H 13.6/40.3. BUN 14. Cr 0.70. CTA overnight returned this AM with concern for a small, mildly complex pericardial effusion. Also noted was a renal lesion. Allergies Allergy/AdvReac Type Severity Reaction Status Date / Time ibuprofen Allergy Intermediate LIPS SWELL Verified 01/15/22 16:00 Home Medications Medication Instructions Recorded Confirmed Type cyanocobalamin (vitamin B-12) 1,000 mcg sublingual DAILY 01/07/22 01/15/22 History 1,000 mcg sublingual tablet levothyroxine 50 mcg tablet 50 mcg PO DAILY 01/07/22 01/15/22 History lisinopril 40 mg tablet 40 mg PO DAILY 01/07/22 01/15/22 History ondansetron 4 mg disintegrating 4 mg PO Q8H PRN NAUSEA/VOMITING 01/07/22 01/15/22 History tablet pediatric multivitamin no.76 2 tab PO DAILY 01/07/22 01/15/22 History (Flintstones Complete chewable tablet) oxycodone-acetaminophen 5 mg-325 1 tab PO TID PRN pain #10 tabs 01/11/22 01/15/22 Rx mg tablet (Percocet) tamsulosin 0.4 mg capsule 0.4 mg PO DAILY #30 caps 01/14/22 01/15/22 Rx ciprofloxacin HCl 500 mg tablet 500 mg PO BID 5 days #10 tabs 01/16/22 01/15/22 Rx (Cipro) phenazopyridine 200 mg tablet 200 mg PO Q8H PRN painful 01/16/22 Rx (Pyridium) urination #6 tabs Patient History Medical History DMII (diabetes mellitus, type 2) HTN (hypertension) Hypothyroidism Kidney stones Morbid obesity Renal colic on right side Surgical History H/O gastric bypass Family History Other Family history non-contributory Social History Smoking Status: Never smoker Hx Alcohol Use: No Hx Substance Use: No Preferred Language: Greenlandic Communication Ability: Effective 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 Beliefs That Will Affect Care: None Current Living Situation: Spouse Feels Safe at Home: Yes Assistive Devices: CPAP Review of Systems Constitutional: no fever and no chills Respiratory: + dyspnea Cardiovascular: + chest pain and + problem reported (pain with inspiration) Gastrointestinal: no abdominal pain, no heartburn, no hematemesis and no melena Musculoskeletal: no problem reported Psychiatric: no problem reported Hematologic / Lymphatic: no unexplained weight loss Physical Exam Constitutional: WD/WN, vitals as above Neck: normal visual inspection Respiratory: normal respiratory effort Difficult to auscultate due to body habitus Cardiovascular: Rate/Rhythm: regular rate difficult to auscultate due to body habitus Gastrointestinal (Abdomen): normal bowel sounds, soft, nontender, no hepatosplenomegaly Difficult to auscultate due to body habitus Musculoskeletal: Head/Neck/Chest: normocephalic Psychiatric: Orientation: alert and oriented x 3 Results & Data ([facility]) Vital Signs (Past 12 Hours) Vital Signs Temp Pulse Pulse Resp BP BP Pulse Ox 05/18/22 07:19 141/70 H 05/18/22 07:19 73 18 96 05/18/22 07:01 76 18 93 05/18/22 07:01 126/71 05/18/22 06:39 111/59 L 05/18/22 06:02 63 24 90 05/18/22 06:02 83/48 L 05/18/22 05:05 134/61 05/18/22 05:00 67 19 93 05/18/22 04:00 58 L 25 H 94 05/18/22 04:00 110/47 L 05/18/22 03:30 56 L 20 96 05/18/22 03:00 78 20 97 05/18/22 03:00 158/95 H 05/18/22 05:00 67 20 134/61 94 05/18/22 03:15 78 20 96 05/18/22 03:15 73 14 158/95 H 97 05/18/22 02:28 96 05/18/22 02:27 78 22 179/119 H 96 05/18/22 02:14 36.6 C 87 22 98 O2 Del Method 05/18/22 07:19 05/18/22 07:19 05/18/22 07:01 05/18/22 07:01 05/18/22 06:39 05/18/22 06:02 05/18/22 06:02 05/18/22 05:05 05/18/22 05:00 05/18/22 04:00 05/18/22 04:00 05/18/22 03:30 05/18/22 03:00 05/18/22 03:00 05/18/22 05:00 Room Air 05/18/22 03:15 Room Air 05/18/22 03:15 Room Air 05/18/22 02:28 Room Air 05/18/22 02:27 Room Air 05/18/22 02:14 Room Air PG Care Time/CCT Total # of Minutes Spent Total Time Spent with Patient: Total time spent is greater than 50% in coordination of care (as documented) at patient's floor/unit and/or counseling patient: Coding Level of Care Code 64575 Inpt Consult Level 4 Diagnoses Atypical chest pain R07.89
[2022-05-18] MEDS: HYDROmorphone INJ 0.5 MG/0.5 ML SYR IV PRN ×2 (10:26→13:27)
[2022-05-18] MEDS ORDERED: COLCHICINE 0.6 MG TAB PO ONE (10:30)
[2022-05-18] MEDS: CYANOCOBALAMIN (B-12) 500 MCG TABLET PO SCH (13:27)
[2022-05-18] MEDS: SUCRALFATE 1 GM/10 ML UDC PO SCH ×3 (13:27→20:17)
--- NOTE | 2022-05-18 14:03 | XCELERA ---
[id number]
--- NOTE | 2022-05-18 15:01 | History & Physical Bridge Note ---
Date of Service May 18, 2022 History & Physical Bridge Note I have examined the patient, reviewed the History & Physical and in the interval since the performance of the History & Physical I have noted the following changes of clinical significance: no changes noted Doing better this afternoon. Believe he likely has pericarditis as his pain is severe lying back and with deep breathing. Echo shows trivial pericardial effusion. EKG with some slight ST elevations (<1mm) and scooped AR intervals. Re: etiology, will get TSH & check u/s of right kidney to ensure no change in the cyst seen in 01/2022.
--- NOTE | 2022-05-18 15:21 | Electrocardiogram Report ---
Test Reason : Blood Pressure : / mmHG Vent. Rate : 083 BPM Atrial Rate : 083 BPM P-R Int : 192 ms QRS Dur : 064 ms QT Int : 334 ms P-R-T Axes : 048 030 045 degrees QTc Int : 392 ms Normal sinus rhythm Low voltage QRS Cannot rule out Anteroseptal infarct , age undetermined Abnormal ECG When compared with ECG of 16-JAN-2022 05:46, Minimal criteria for Anteroseptal infarct are now Present Confirmed by Weston Metzger ([id number]) on 05/18/2022 3:21:10 PM Referred By: REFERRED SELF Confirmed By:Weston Metzger
[2022-05-18] MEDS: oxyCODONE/ACETAMINOPHEN 5mg/325mg TAB PO PRN ×2 (15:26→20:17)
--- NOTE | 2022-05-18 16:15 | Allergy & Immunology Consult ---
Date of Consultation May 18, 2022 Assessment & Plan (1) Allergy to NSAIDs: Patient presents today with history of allergic reaction to NSAIDs. Given the time of onset, between 1 to 2 hours, I am concerned about the possibility of a pseudo allergic/idiosyncratic reaction. These can sometimes be challenging because patients may have problems with other NSAIDs as well. In some cases, this could be a class effect where all NSAIDs could trigger the same type of reaction. The only way to know for sure would to be to perform a graded challenge. All because he has been able to tolerate 81 mg of aspirin, this could be the starting dose. I would give 81 mg, then 162 mg, then 325 mg by 90 minutes each. doses by at least 90 minutes is crucial as pseudo allergic reactions may take between 60 to 90 minutes to manifest. If these doses all go smoothly, he can be discharged on 325 mg twice daily. If the goal is to use a lower dose, like 162 mg twice daily, then the challenge would be 81 mg then 162 mg by 90 minutes each. If the goal would be to use 81 mg, then he can receive 81 mg and be observed for 90 minutes. If the goal is to do twice daily dosing, he can receive the next dose 12 hours after the last dose of the challenge. If you were to develop hives, they should be responsive to antihistamines and Benadryl can be given acutely. These hives are also sensitive to prednisone and this could also be considered. History of Present Illness Attending Physician: Mic Caputo MD History of Present Illness This is a 41-year-old male who presents with a history of reaction to ibuprofen that needs an NSAID, aspirin specifically because of pericarditis. Regarding patient's reaction ibuprofen, he has had this for least a few years. He took a dose of ibuprofen, and he is not sure whether he took 200 mg or 400 mg, but sometime within 1 to 2 hours developed swelling of the lips. It took about 12 hours for the swelling to go away and initially he did not know that it was the ibuprofen that that this see take it again the next day and the same thing happened again. He has been avoiding ibuprofen as result, however, he may have had it again about a year ago and had a similar reaction. He denies any signs symptoms of hives, shortness of breath, gastrointestinal symptoms, lightheadedness/dizziness. In terms of other NSAIDs, he says that he does not use any of these now because of his gastric bypass. Before the procedure, he would occasionally use other NSAIDs including aspirin. He was using 81 mg of aspirin daily for cardiac protection, but this was stopped after his cardiac bypass. He may have had this dose again a few times after the reaction to ibuprofen and tolerated it. All ergies Allergy/AdvReac Type Severity Reaction Status Date / Time ibuprofen Allergy Intermediate LIPS SWELL Verified 01/15/22 16:00 Home Medications Medication Instructions Recorded Confirmed Type cyanocobalamin (vitamin B-12) 1,000 mcg sublingual DAILY 01/07/22 01/15/22 History 1,000 mcg sublingual tablet levothyroxine 50 mcg tablet 50 mcg PO DAILY 01/07/22 01/15/22 History lisinopril 40 mg tablet 40 mg PO DAILY 01/07/22 01/15/22 History ondansetron 4 mg disintegrating 4 mg PO Q8H PRN NAUSEA/VOMITING 01/07/22 01/15/22 History tablet pediatric multivitamin no.76 2 tab PO DAILY 01/07/22 01/15/22 History (Flintstones Complete chewable tablet) oxycodone-acetaminophen 5 mg-325 1 tab PO TID PRN pain #10 tabs 01/11/22 01/15/22 Rx mg tablet (Percocet) tamsulosin 0.4 mg capsule 0.4 mg PO DAILY #30 caps 01/14/22 01/15/22 Rx ciprofloxacin HCl 500 mg tablet 500 mg PO BID 5 days #10 tabs 01/16/22 01/15/22 Rx (Cipro) phenazopyridine 200 mg tablet 200 mg PO Q8H PRN painful 01/16/22 Rx (Pyridium) urination #6 tabs Patient History Medical History (Updated 05/18/22 @ 16:18 by Mary Beverly MD) Allergy to NSAIDs DMII (diabetes mellitus, type 2) HTN (hypertension) Hypothyroidism Kidney stones Morbid obesity Renal colic on right side Surgical History H/O gastric bypass Family History Other Family history non-contributory Social History Smoking Status: Never smoker Hx Alcohol Use: No Hx Substance Use: No Preferred Language: Hebrew Communication Ability: Effective Client Resource Specialist Required: No Beliefs That Will Affect Care: None Current Living Situation: Spouse Feels Safe at Home: Yes Assistive Devices: CPAP Review of Systems Constitutional: no fever and no chills Eyes: as per Subjective / HPI; no eye pain Ear, Nose, Mouth, Throat: as per Subjective / HPI Respiratory: as per Subjective / HPI Cardiovascular: as per Subjective / HPI Gastrointestinal: as per Subjective / HPI Genitourinary: + as per Subjective / HPI; no dysuria or no difficulty urinating Musculoskeletal: as per Subjective / HPI; no joint pain, no myalgia and no muscle weakness Integumentary: as per Subjective / HPI Neurologic: as per Subjective / HPI; no generalized weakness and no loss of sensation Endocrine: as per Subjective / HPI; no fatigue Hematologic / Lymphatic: as per Subjective / HPI; no lymphadenopathy Allergy / Immunological: as per Subjective / HPI Physical Exam Constitutional: WD/WN, vitals as above no altered mental status and not in distress Eyes: no eyelid abnormality, no conjunctival abnormality and sclerae not anicteric ENMT: Ears: no TM abnormality and able to visualize TM Nose: no turbinate abnormality, no nasal mucous membrane abnormality, no nasal discharge, nasal mucous membranes not dry and no nasal polyps Mouth: no lip abnormality Throat: uvula midline; no tonsil abnormality Neck: trachea midline Thyroid: normal thyroid Respiratory: no retractions, does not use accessory muscles, no cough, normal respiratory pattern, expiratory phase not prolonged and no audible wheezes Auscultation: lungs clear to auscultation bilaterally; no crackles, no rhonchi and no wheezes Cardiovascular: Rate/Rhythm: regular rate and regular rhythm Heart Sounds: normal S1 and normal S2; no murmur and no cardiac rub Extremities: no edema Gastrointestinal (Abdomen): Inspection/Auscultation: abdomen normal to inspection and normal bowel sounds Percussion/Palpation: abdomen nontender Musculoskeletal: Head/Neck/Chest: + head abnormal to inspection Skin: no rashes, no dry skin and no erythema Neurologic: awake; not confused Psychiatric: A+Ox3, euthymic affect Lymphatic: no lymphadenopathy Results & Data ([facility]) Vital Signs (Past 12 Hours) Vital Signs Temp Pulse Pulse Resp BP BP Pulse Ox 05/18/22 16:02 93 H 05/18/22 16:00 36.8 C 92 H 18 122/72 89 L 05/18/22 15:32 05/18/22 09:11 05/18/22 09:11 36.8 C 82 16 128/78 96 05/18/22 12:00 37.0 C 85 19 119/73 92 05/18/22 07:19 141/70 H 05/18/22 07:19 73 18 96 05/18/22 07:01 76 18 93 05/18/22 07:01 126/71 05/18/22 06:39 111/59 L 05/18/22 06:02 63 24 90 05/18/22 06:02 83/48 L 05/18/22 05:05 134/61 05/18/22 05:00 67 19 93 05/18/22 05:00 67 20 134/61 94 O2 Del Method 05/18/22 16:02 05/18/22 16:00 Room Air 05/18/22 15:32 Room Air 05/18/22 09:11 Room Air 05/18/22 09:11 Room Air 05/18/22 12:00 Room Air 05/18/22 07:19 05/18/22 07:19 05/18/22 07:01 05/18/22 07:01 05/18/22 06:39 05/18/22 06:02 05/18/22 06:02 05/18/22 05:05 05/18/22 05:00 05/18/22 05:00 Room Air Coding Level of Care Code 04997 Inpt Consult Level 4 Diagnoses Allergy to NSAIDs Z88.6
[2022-05-18 16:35] LABS: Amphetamines+Metham, Urine Neg (Neg); Barbiturates, Urine Neg (Neg); Benzodiazepine, Urine Neg (Neg); Cocaine, Urine Neg (Neg); MDMA (Ecstacy), Urine Neg (Neg); Methadone, Urine Neg (Neg); Opiate, Urine Pos (Neg); Phencyclidine, Urine Neg (Neg)
--- NOTE | 2022-05-18 16:45 | Ultrasound Report ---
US renal/blad retro comp CLINICAL HISTORY: Review right kidney. Described as cyst in 01/24. TECHNIQUE: Multiple sonographic real-time images of the kidneys and bladder were obtained. COMPARISON: Comparison is made to renal ultrasound 01/15/2022 FINDINGS: The exam is highly limited by limited penetration of the kidneys. The right kidney measures 10.8 cm i n length, and the left kidney measures 12.6 cm in length. The right kidney is normal in size, contour, cortical thickness, and echogenicity. No hydronephrosis is identified. There is suggestion of a exophytic cyst in the right kidney measuring approximately 2 .1 cm. No perinephric fluid collection is seen. The left kidney is normal in size, contour, cortical thickness and echogenicity. No hydronephrosis i s identified. No renal lesion is identified. No perinephric fluid collection is seen. The bladder is partially distended. No large intraluminal mass is seen. IMPRESSION: Limited exam. Suggestion of an exophytic cyst in the right kidney measuring approximately 2.1 cm, unc hanged from prior exam. ACT 112: Negative or not required by law. Electronically signed by: Selvin Villarreal M.D. 05/18/2022 4:44 PM
[2022-05-18] MEDS: COLCHICINE 0.6 MG TAB PO SCH (20:17)
[2022-05-18] MEDS: PANTOprazole 40 MG in SYRINGE 0 ML IV SCH (20:17)
[2022-05-18] MEDS ORDERED: FAMOTIDINE 20 MG in SYRINGE 3 ML IV SCH (21:00)
[2022-05-19] MEDS: oxyCODONE/ACETAMINOPHEN 5mg/325mg TAB PO PRN ×3 (00:03→08:46)
[2022-05-19 06:00] LABS: Basophils # (auto) 0.05 K/uL (0-0.2); Basophils % (auto) 0.5 %; Eosinophils # (auto) 0.16 K/uL (0-0.50); Eosinophils % (auto) 1.7 %; Hematocrit (blood only) 35.8 % (40.1-51.0); Immature Granulocytes # (auto) 0.09 K/uL (0.00-0.02); Lymphocytes # (auto) 1.62 K/uL (1.2-3.4); Lymphocytes % (auto) 17.3 %; Mean Corpuscular Hemoglobin 31.3 pg (25.0-34.0); Mean Corpuscular Hgb Conc 33.5 g/dL (32.0-36.0); Mean Corpuscular Volume 93.2 fL (80.0-100.0); Mean Platelet Volume 11.9 fL (9.4-12.4); Monocytes % (auto) 13.9 %; Neutrophils # (auto) 6.16 K/uL (1.4-6.5); Neutrophils % (auto) 65.6 %; Platelet Count 130 K/uL (130-400); RDW Coefficient of Variation 12.6 % (11.5-14.5); RDW Standard Deviation 43.3 fL (36.4-46.3); Red Blood Count 3.84 M/uL (4.63-6.08); White Blood Count 9.38 K/ul (4.8-10.8)
[2022-05-19 06:30] LABS: Albumin Globulin Ratio 1.5 (0.9-2); Albumin Level 4.1 gm/dl (3.4-5.0); Calcium 8.9 mg/dl (8.5-10.1); Creatinine Clr Calc Pharmacy 265.6 ml/min; Est GFR (Non-African American) 121.7 ml/min; Globulin 2.7 gm/dl (2.5-4.0); Magnesium 1.7 mg/dl (1.7-2.4); Potassium 4.1 mmol/L (3.5-5.1); Total Protein 6.8 gm/dl (6.0-8.3)
[2022-05-19] MEDS: PANTOprazole 40 MG in SYRINGE 0 ML IV SCH (08:45)
[2022-05-19] MEDS: SUCRALFATE 1 GM/10 ML UDC PO SCH (08:45)
[2022-05-19] MEDS: CYANOCOBALAMIN (B-12) 500 MCG TABLET PO SCH (08:45)
[2022-05-19] MEDS: COLCHICINE 0.6 MG TAB PO SCH (08:45)
--- NOTE | 2022-05-19 11:19 | Electrocardiogram Report ---
Test Reason : Blood Pressure : / mmHG Vent. Rate : 075 BPM Atrial Rate : 075 BPM P-R Int : 164 ms QRS Dur : 068 ms QT Int : 358 ms P-R-T Axes : 028 016 034 degrees QTc Int : 399 ms Normal sinus rhythm Low voltage QRS ST elevation in multiple leads, consistent with pericarditis Abnormal ECG When compared with ECG of 18-MAY-2022 02:19, ST elevation in multiple leads now present Confirmed by Glen Ramos ([id number]) on 05/19/2022 11:19:22 AM Referred By: REFERRED SELF Confirmed By:Glen Ramos
--- NOTE | 2022-05-19 15:52 | Discharge Summary ---
Date of Service May 19, 2022 Admission HPI Per Admitting Provider The patient is a 41 yo male with PMH including morbid obesity, s/p gastric bypass 6 years ago, HTN, ALISHA, DM, Hypothyroidism, B-12 deficiency, BPH with LUTS and chronic pain syndrome. He presents to the ED with severe epigastric/sternal pain as above. He denies any recent travels, sick exposure, change in dietary habits or activities. Principal Diagnosis Pericarditis Discharge Exam Gen: No acute distress. More comfortable than yesterday. CV: RRR. No rub appreciated Resp: CTA b/l. Distant breath sounds Discharge Data Allergies Allergy/AdvReac Type Severity Reaction Status Date / Time ibuprofen Allergy Intermediate LIPS SWELL Verified 01/15/22 16:00 Consultations 05/18/22 06:43 ED Decision to Admit Stat 05/18/22 09:11 Consult Gastroenterology Routine 05/18/22 15:37 Consult Allergy / Immunology Routine Ordered Studies 05/18/22 06:05 CTA abdomen pelvis w con [CT angio abdomen pelvis w con] Stat CTA chest w con [CT angio chest w con] Stat 05/18/22 15:01 US renal/blad retro comp Routine Hospital Course (1) Pericarditis: Idiopathic. EKG showed slight TX depressions and diffuse ST elevations. Troponins all negative. - Echo on 05/18 showed trace pericardial effusion. Otherwise normal. - Improved on colchicine 0.6 mg PO BID. Pain went from "12/10" down to 6/10 by discharge (over 24 hours). Deferred usual NSAIDs and steroids for the following: * NSAIDs - Hx of ibuprofen allergy with lip swelling & also due to hx of gastric bypass. * Steroids - Hx of gastric bypass, increase in BP and blood sugars, & increased chance of pericarditis recurrence Discussed options at length with patient. We both agree risks>benefits for both options given his substantial improvement over 24 hours. If pain recurs or worsens, would need to revisit both options. If he does need further treatment, both ASA or prednisone can be considered. Please see Dr. Beverly's note from 05/18 on how to trial ASA in a monitored setting given his allergy to ibuprofen. This case was discussed with cardiology who felt plan was sensible and that they did not need to consult given his improvement. Follow up in 1-2 weeks in cardiology office. Cardiology will help arrange. (2) Morbid obesity: S/P gastric bypass 6 years ago. With the severity of his symptoms and acute onset, concerned with inflammation and/or ulcers. However, he improved with pericarditis treatment, so feel this is less likely. He reports that his weight has changed from 700 to 450 pounds s/p surgery. - GI consulted -> [place] it was less likely GI source. Can follow up with bariatric surgeon. (3) ALISHA (obstructive sleep apnea): CPAP HS as needed (4) DMII (diabetes mellitus, type 2): Primarily diet controlled and gastric bypass Glucose 117 on Labs No accuchecks unless AM labs go up -> Not needed in this short admission. (5) HTN (hypertension): BP elevated. Continue lisinopril on discharge. (6) Hypothyroidism: Normal TSH. - Continue home levothyroxine Total Time Total Time Spent Total Time Spent (In Minutes): 45 Discharge Plan Discharge Items Patient Disposition: Home - Self-Care Reason For Visit: SEVERE STERNAL CHEST PAIN Discharge Diagnosis: Pericarditis Activity: Resume your previous activity Lifting: No more than 10 pounds Lifting Comment: Until seen by cardiology Non-emergency contact: Primary Care Provider and Vendor Analyst Call non-emergency contact if: your symptoms worsen Follow-up/Referrals: Donald Valnezuela PA-C [Physician Kettle Operator] - 05/24/22 10:00 am Rajani Kim D.O. [Primary Care Provider] - (Someone will call you Saturday with appt. Please take discharge instructions with you) Diet: Regular Addtl Attending Provider Instructions: Mr. Baird, You were admitted to the hospital for chest pain. The pain is being caused by something called pericarditis which is inflammation of the lining of your heart. There are some causes for this which we ruled out, and 55% of cases are idiopathic (meaning we never find a particular reason). Luckily, the ultrasound of your heart shows it is squeezing great, and you have no issues with your heart valves. Your blood testing shows no damage occurred to your heart. We are sending you home on colchicine twice a day. This has so far helped your pericarditis quite a bit. If it continues to get better over 2-3 days, this would be wonderful. There are two other possible treatments for pericarditis. Neither is ideal for you, so we are going just with the colchicine for now. 1) Aspirin -> This is not ideal because of your allergy to ibuprofen and because of your gastric bypass. The allergy doctor (Dr. Beverly) gave us a protocol for attempting aspirin, but you would need to do it in a monitored health-care setting. For now, we decided to hold off since you are improving. If we do need to do this, we would like go with a lower dose than the usual 325 mg twice a day. 2) Steroids (for example, prednisone) -> We did not do this because a) steroids can be hard on your gastric bypass as well, and b) steroids can actually have a higher rate of recurrence of pericarditis. They are not recommended unless we don't have other options. So, we will hold off on this as well. If your pain gets worse, you may have to try one of these options, but for now, your pain has substantially improved, and I don't think the benefit is greater than the risk at this time. If the pain gets worse, call your PCP or come to the ER to likely start one of these two options. Please call the cardiology office on Saturday morning to arrange a post-hospital follow-up. I have let them know about your case, but being persistent will ensure you get good follow-up. Pending Studies at Discharge: No Stand-Alone Forms: My [facility], Smoking Cessation Medications and DC Order Prescriptions: New oxycodone-acetaminophen [Percocet] 5-325 mg Tablet 1 tab PO Q6H PRN (Reason: pain) Qty: 15 0RF colchicine [Colcrys] 0.6 mg Tablet 0.6 mg PO BID Qty: 60 0RF Continued tamsulosin 0.4 mg capsule 0.4 mg PO DAILY Qty: 30 11RF levothyroxine 50 mcg tablet 50 mcg PO DAILY cyanocobalamin (vitamin B-12) 1,000 mcg Tablet, Sublingual 1,000 mcg SUBLINGUAL DAILY lisinopril 40 mg tablet 40 mg PO DAILY Flintstones Complete Tablet,Chewable 2 tab PO DAILY Discontinued oxycodone-acetaminophen [Percocet] 5-325 mg tablet 1 tab PO TID PRN (Reason: pain) Qty: 10 0RF ondansetron 4 mg tablet,disintegrating 4 mg PO Q8H PRN (Reason: NAUSEA/VOMITING) phenazopyridine [Pyridium] 200 mg tablet 200 mg PO Q8H PRN (Reason: painful urination) Qty: 6 0RF ciprofloxacin HCl [Cipro] 500 mg tablet 500 mg PO BID 5 Days Qty: 10 0RF Rx Instructions: STARTED 01/14/22 FOR 7 DAYS Discharge Orders: Discharge Order (Routine); Ordered 05/19/22 Ordered By: Mic Caputo Admission Data Admit Date/Time: 05/18/22 06:03 Attending Provider: Mic Caputo Admit Provider: Avery Marshall Primary Care Provider: Rajani Kim Other Providers: Avery Marshall ; Jovany Escobar Faoud Other Interventions: Discharge Summary Assessment (RN) Last Done: 05/19/22 09:58 Coding Level of Care Code D/C DAY MANAGEMENT >30 MINS Diagnoses Pericarditis I31.9 Morbid obesity E66.01 ALISHA (obstructive sleep apnea) G47.33 DMII (diabetes mellitus, type 2) E11.9 HTN (hypertension) I10 Hypothyroidism E03.9
[2022-05-21 06:02] LABS: Codeine Urine NEGATIVE ng/mL (<50); Hydrocodone Urine NEGATIVE ng/mL (<50); Hydromor Urine 799 ng/mL (<50); Morphine Urine NEGATIVE ng/mL (<50); Norhydrocodone Conf Ur NEGATIVE ng/mL (<50); Noroxycodone Urine NEGATIVE ng/mL (<50); Oxycodone Urine NEGATIVE ng/mL (<50); Oxymorph Urine NEGATIVE ng/mL (<50)
== END 2022-05-19 11:59 | disposition home or self-care (01) | DRG 315 ==
LOC: ED 02:08 → INTOOBSV 06:03 → 4W 06:03 → SUATTDRO 06:03 → 4W 08:20

== ENCOUNTER 2023-08-15 10:08 | Observation (INO) ==
--- NOTE | 2023-08-07 11:51 | Anesthesiology Consultation ---
Date of Service August 07, 2023 Assessment & Plan (1) Encounter for pre-operative examination: - check BSG am DOS. - cystoscopy with stent 01/16/22: igel "patient did not tolerate MAC." - Per ortho/prosthetic aide on 08/07/2023: No known infectious disease contacts, current infectious disease symptoms in past 10 days or COVID positive test result in the past 30 days. Chart Review Chart Review: Acceptable Risk for Surgery and Patient NOT seen in Pre Admission Testing History Surgery Operation Date: 08/15/23 09:00 Proposed Procedures p Cystoscopy, Urethral Dilation, Possible Ureteroscopy and Stone Treatment - Left - Dean Bautista, DO Height/Weight Height: 5 ft 10 in Weight: 199.581 kg Allergies Allergy/AdvReac Type Severity Reaction Status Date / Time ibuprofen Allergy Intermediate LIPS SWELL Verified 08/07/23 11:03 Medications Home Medications Medication Instructions Recorded Confirmed Last Taken cyanocobalamin (vitamin B-12) 1,000 mcg sublingual QAM 01/07/22 08/07/23 05/14/23 05:00 1,000 mcg sublingual tablet levothyroxine 50 mcg tablet 50 mcg PO QAM 01/07/22 08/07/23 01/15/22 lisinopril 40 mg tablet 40 mg PO QAM 01/07/22 08/07/23 05/14/23 05:00 pediatric multivitamin no.76 2 tab PO DAILY 01/07/22 08/07/23 05/14/23 05:00 (Flintstones Complete chewable tablet) hydrochlorothiazide 12.5 mg capsule 12.5 mg PO QAM 03/27/23 08/07/23 05/13/23 tamsulosin 0.4 mg capsule 0.4 mg PO QAM 05/07/23 08/07/23 05/15/23 05:00 cholecalciferol (vitamin D3) 125 125 mcg PO QAM 05/15/23 08/07/23 05/14/23 05:00 mcg (5,000 unit) tablet (Vitamin D3) ergocalciferol (vitamin D2) 1,250 50,000 unit PO 2XWK 05/15/23 08/07/23 05/11/23 mcg (50,000 unit) capsule acetaminophen 650 mg 1,300 mg PO QAM 08/07/23 08/07/23 Unknown tablet,extended release Past Medical History Medical History Sleep apnea cpap Pericardial effusion hx in 05/2022, treated at [facility]. follows with Dr Rojas Allergy to NSAIDs Morbid obesity Bladder calculus still has issues>f/u w/urology HTN (hypertension) Hypothyroidism DMII (diabetes mellitus, type 2) hx-had gastric bypass, no longer on meds Renal colic on right side "every now and then" Kidney stones Past Family History Family History Other Family history non-contributory No family history of adverse response to anesthesia Past Surgical History Surgical History H/O hernia repair with excess skin removal in 2015. History of esophagogastroduodenoscopy (EGD) last 2019 History of tonsillectomy and adenoidectomy S/P pericardiocentesis 05/2022, [facility] H/O gastric bypass 10/2015 Social History Smoking Status: Never smoker Do You Dip or Chew Tobacco: No Hx Alcohol Use: Yes alcohol intake frequency: holidays/special occasions only Hx Substance Use: No substance use type: does not use Lab Results Anesthesia Preop Results Results Anesthesia Widget: WBC 10.15 K/ul (4.8-10.8) 07/25/23 Hgb 14.1 g/dl (14.0-18.0) 07/25/23 Hct 41.1 % (42.0-52.0) L 07/25/23 Plt 176 K/uL (130-400) 07/25/23 Na 137 mmol/L (136-145) 07/25/23 K 4.2 mmol/L (3.5-5.1) 07/25/23 Cl 101 mmol/L (98-107) 07/25/23 CO2 29 mmol/L (21-32) 07/25/23 BUN 14 mg/dl (6-23) 07/25/23 Creat 0.61 mg/dl (0.6-1.4) 07/25/23 Glucose Level 132 mg/dl (70-99(Fasting)) H 07/25/23 Testing Electrocardiogram Date: 07/25/23 NSR, rate 69 bpm Anterior infarct-cited on or before 06/01/22 Chest X-Ray Date: 07/25/23 No significant change compared to the prior study. No acute process. Echocardiogram Date: 04/11/23 Technically limited study No significant pericardial effusion appreciated EF 55-60% 05/18/22 No regional wall motion abnormalities
[~2023-08-15 10:08] MED LIST: ACETAMINOPHEN 1000 MG/100 ML IV IV ONE; LR 15ML/HR IV SCH
--- NOTE | 2023-08-15 10:36 | History & Physical Report ---
Date of Service August 15, 2023 Assessment & Plan (1) Flank pain: (2) Kidney stones: (3) Urethral stricture: Plan Risks and benefits discussed at length for procedure. These include bleeding, infection, injury to surrounding tissues or organs, and risks associated with anesthesia. Patient states understanding and agrees to proceed. Will sign consent and schedule. Plan for cystoscopy with possible dilation, possible left ureteroscopy, laser lithotripsy, stent. History of Present Illness Primary Care Provider: Rajani Kim Patient here for procedure. No changes in medical issues. No major changes in urinary issues. Continued issues and concerns. No change in pain or discomfort. No severe fevers or chills. No chest pain or shortness of breath. Risks and benefits discussed at length for procedure. These include bleeding, infection, injury to surrounding tissues or organs, and risks associated with anesthesia. Patient and/or family states understanding and agrees to proceed. Consent and supporting information completed. Allergies Allergy/AdvReac Type Severity Reaction Status Date / Time ibuprofen Allergy Intermediate LIPS SWELL Verified 08/15/23 10:31 Home Medications Medication Instructions Recorded Confirmed Type cyanocobalamin (vitamin B-12) 1,000 mcg sublingual QAM 01/07/22 08/15/23 History 1,000 mcg sublingual tablet levothyroxine 50 mcg tablet 50 mcg PO QAM 01/07/22 08/15/23 History lisinopril 40 mg tablet 40 mg PO QAM 01/07/22 08/15/23 History pediatric multivitamin no.76 2 tab PO DAILY 01/07/22 08/15/23 History (Flintstones Complete chewable tablet) hydrochlorothiazide 12.5 mg capsule 12.5 mg PO QAM 03/27/23 08/15/23 History tamsulosin 0.4 mg capsule 0.4 mg PO QAM 05/07/23 08/15/23 History cholecalciferol (vitamin D3) 125 125 mcg PO QAM 05/15/23 08/15/23 History mcg (5,000 unit) tablet (Vitamin D3) ergocalciferol (vitamin D2) 1,250 50,000 unit PO 2XWK 05/15/23 08/15/23 History mcg (50,000 unit) capsule acetaminophen 650 mg 1,300 mg PO QAM 08/07/23 08/15/23 History tablet,extended release Past Med/Surg History Medical History Sleep apnea cpap Pericardial effusion hx in 05/2022, treated at [facility]. follows with Dr Rojas Allergy to NSAIDs Morbid obesity Bladder calculus still has issues>f/u w/urology HTN (hypertension) Hypothyroidism DMII (diabetes mellitus, type 2) hx-had gastric bypass, no longer on meds Renal colic on right side "every now and then" Kidney stones Surgical History H/O hernia repair with excess skin removal in 2015. History of esophagogastroduodenoscopy (EGD) last 2019 History of tonsillectomy and adenoidectomy S/P pericardiocentesis 05/2022, [facility] H/O gastric bypass 10/2015 Family History Other Family history non-contributory No family history of adverse response to anesthesia Social History Smoking Status: Never smoker Second Hand Exposure: Yes (as a child); Do You Dip or Chew Tobacco: No; Tobacco Cessation Education Requested by Patient: No Hx Alcohol Use: Yes Hx Substance Use: No Preferred Language: Barbadian Communication Ability: Effective Consumer Sales Representative Required: No Beliefs That Will Affect Care: None Current Living Situation: Spouse and Family Other Information That Helps Us Care for You: No Feels Safe at Home: Yes Safety Concerns: Feels Safe At This Time Assistive Devices: None Review of Systems All systems reviewed & are unremarkable except as noted in HPI & below Physical Exam Physical Exam: General: Alert/Arousable. No Acute illness. . HEENT: Inspection normal. Normal inspection of face. Normal inspection of neck. Psychologic: Normal affect/No change in mentation. Respiratory: No use of accessory muscles. No respiratory changes or exacerbation or changes with tachypnea or dyspnea. Cardiovascular: No tachycardia Skin: [place] and Dry. No new rashes or visible lesions. Abdomen: Normal inspection. No guarding. Results & Data Vital Signs (Past 12 Hours) Vital Signs Temp Pulse Resp BP Pulse Ox O2 Del Method 08/15/23 10:28 36.7 C 74 20 163/82 H 95 Room Air PG Care Time/CCT Total # of Minutes Spent Total Time Spent with Patient: Total time spent is greater than 50% in coordination of care (as documented) at patient's floor/unit and/or counseling patient: Coding Level of Care Code None Diagnoses Flank pain R10.9 Kidney stones N20.0 Urethral stricture N35.919
[2023-08-15] MEDS ORDERED: ePHEDrine sulfate 50 MG/ML AMP IV PRN (11:44)
[2023-08-15] MEDS ORDERED: ATROPINE SULFATE 0.1 MG/ML 10ML SYR IV PRN (11:44)
[2023-08-15] MEDS ORDERED: ONDANSETRON INJ 2 MG/ML 2 ML VIAL IV PRN ×2 (11:44→18:25)
[2023-08-15] MEDS ORDERED: ONDANSETRON INJ 2 MG/ML 2 ML VIAL ONE (12:13)
[2023-08-15] MEDS ORDERED: MIDAZOLAM HCL 1 MG/ML 2ML VIAL ONE (12:13)
[2023-08-15] MEDS ORDERED: PROPOFOL IV EMULSION 10 MG/ML 20 ML VIAL IV ONE (12:13)
[2023-08-15] MEDS ORDERED: LIDOCAINE 2% 2 ML VIAL/AMP(20MG/ML) INFIL ONE (12:13)
[2023-08-15] MEDS ORDERED: ROCURONIUM BROMIDE 10 MG/ML 5 ML VIAL IV ONE (12:13)
[2023-08-15] MEDS ORDERED: fentaNYL citrate PF 100 MCG/2 ML VIAL ONE (12:13)
[2023-08-15] MEDS ORDERED: SUGAMMADEX SODIUM 200 MG/2 ML VIAL IV ONE (13:40)
--- NOTE | 2023-08-15 13:49 | Operative Report ---
PG Post Operative Report Pre & Post Diagnosis Operation Date: 08/15/23 11:35 Pre-Op Diagnosis: Calcium Nephrolithiasis Post-Op Diagnosis: Calcium Nephrolithiasis I identified the patient and participated in the time-out.: Yes Procedure Operation Date: 08/15/23 11:35 Actual Procedures p Cystoscopy with Urethral Dilation Left Ureteroscopy with retrograde pyelogram, laser lithotripsy, stone basket extraction, and stent. - Dean Bautista, Surgeon Dean Bautista, II, DO Inspector Eyeglass Frames None Estimated Blood Loss 1 Findings Consistent with Post-Op Diagnosis Severe stricture of the meatus and moderate stricture of the bulbar urethra. Left renal Stones destroyed to dust and small fragments and larger fragments removed. Specimens Stone Fragments Left Renal Drains 6 Fr Multilength Anesthesia Type General Complications none Disposition Disposition: Recovery Room Indications Patient with bothersome stones. Risks and benefits discussed at length. Description of Procedure Patient was consented and brought back to the operating room. Patient was placed under anesthesia in the supine position and moved to the dorsal lithotomy position. Patient was prepped and draped in the regular sterile fashion. A time out was completed identifying the correct patient and procedure. A 30degree Cystoscope was placed into the bladder and the entire bladder was examined. The meatus was significantly narrowed and strictured. This was dilated. The bulbar urethra was also found to have a stricture and was dilated as well. The bladder neck was high with moderate prostate enlargement. The UO's were identified. The UO was cannulized with a catheter and a retrograde pyelogram was completed. A wire was then placed. A ureteral access sheath and second safety wire was placed. The flexible ureteroscope was taken into the ureter. The entire ureter and renal pelvis were examined. The stones were identified. A laser fiber was selected and the stones were pulverized to dust and small fragments. Larger fragments were grasped and removed and sent for analysis. The entire area was once again examined. No residual large fragments or areas of concern were noted. The scope was slowly removed with the wire left in place. Contrast was placed through the scope for a pyelogram to assist in stent placement. The entire ureter was examined as the scope was slowly removed. No obstructions or other areas of concern were noted. With the wire in place, a 6 Fr Double J stent was placed. It was confirmed with fluoroscopy. With the stent in place, the bladder was emptied. The scope was removed. A 18 Fr Silicon catheter was placed to drain the bladder and due to the dilation within the urethra and meatus. The patient was cleaned, aroused from anesthesia, and transferred to the pacu in stable condition having tolerated the procedure well with no complications. I was present and participated in all aspects of the procedure. The patient will be monitored in the PACU until transferred. Plan to remove catheter in 1-2 weeks with stent removal in office. I attest to the content of the Intraoperative Record and any orders documented therein. Any exceptions are noted below.
[2023-08-15] MEDS ORDERED: DIATRIZOATE MEGLUMINE 30% 100ML VIAL INSTIL PRN (13:59)
--- NOTE | 2023-08-15 14:05 | Fluoroscopy Report ---
FL retrograde includes kub CLINICAL HISTORY: Left stent placement. COMPARISON STUDY: None. FLUOROSCOPY TIME: 34 seconds FLUOROSCOPY IMAGES: 3 Ka,r: 55.5 mGy FINDINGS: There is evidence for a left ureteral stent. The stent appears in good position. IMPRESSION: Fluoroscopic assistance as above. ACT 112: Negative or not required by law. Electronically signed by: Ramos Rodriguez M.D. 08/15/2023 2:04 PM
[2023-08-15] MEDS: fentaNYL citrate PF 100 MCG/2 ML VIAL IV PRN ×2 (14:06→14:44)
--- NOTE | 2023-08-15 14:53 | Anesthesiology Progress Note ---
Date of Service August 15, 2023 Anesthesia Post Procedure Vital Signs Vital Signs: Temp Pulse Pulse Resp BP Pulse Ox O2 Del Method 08/15/23 14:50 98.2 F 85 18 115/46 L 94 Room Air 08/15/23 14:40 84 20 117/59 L 93 Room Air 08/15/23 14:30 85 13 117/59 L 95 Room Air 08/15/23 14:21 89 18 97/45 L 99 Room Air 08/15/23 14:15 85 21 90/40 L 100 Oxymask 08/15/23 14:06 92 H 20 98/53 L 100 Oxymask 08/15/23 13:59 97.0 F L 94 H 19 98/51 L 100 Oxymask 08/15/23 10:28 98.1 F 74 20 163/82 H 95 Room Air O2 Flow Rate 08/15/23 14:50 0 08/15/23 14:40 0 08/15/23 14:30 0 08/15/23 14:21 0 08/15/23 14:15 4 08/15/23 14:06 6 08/15/23 13:59 6 08/15/23 10:28 Pain Intensity Groin: Pain Intensity: 6 Transfer of Care Handoff Completed per policy Notes Mental Status: alert / awake / arousable and participated in evaluation Patient Amnestic to Procedure: Yes Nausea / Vomiting: adequately controlled Pain: adequately controlled Airway Patency, RR, SpO2: stable & adequate BP & HR: stable & adequate Hydration State: stable & adequate Anesthetic Complications: no major complications apparent and Pt Satisfied with anesthetic care
[2023-08-15] MEDS ORDERED: PHENAZOPYRIDINE HCL 200 MG TAB PO ONE (15:17)
[2023-08-15] MEDS ORDERED: oxyCODONE HCL IR 5 MG TAB (IMMEDIATE RELEASE) PO ONE (15:27)
[2023-08-15] MEDS ORDERED: oxyBUTYnin chloride 5 MG TAB PO STA (16:48)
[2023-08-15] MEDS ORDERED: TAMSULOSIN HCL 0.4 MG CAP PO ONE (16:49)
[2023-08-15] MEDS ORDERED: oxyBUTYnin chloride 5 MG TAB PO PRN (18:28)
[2023-08-15] MEDS: oxyCODONE/ACETAMINOPHEN 5mg/325mg TAB PO PRN (19:30)
[2023-08-15] MEDS: MoRPHine SULFATE 2 MG/ML CARP IV PRN ×2 (20:30→23:46)
[2023-08-15] MEDS: CIPROFLOXACIN / D5W 400 MG/200 ML BAG IV SCH (20:37)
[2023-08-16] MEDS: oxyCODONE/ACETAMINOPHEN 5mg/325mg TAB PO PRN ×4 (01:30→13:56)
[2023-08-16] MEDS: MoRPHine SULFATE 2 MG/ML CARP IV PRN ×2 (03:18→07:41)
[2023-08-16] MEDS: PHENAZOPYRIDINE HCL 200 MG TAB PO PRN ×2 (04:01→13:56)
[2023-08-16] MEDS: CIPROFLOXACIN / D5W 400 MG/200 ML BAG IV SCH (07:36)
--- NOTE | 2023-08-16 11:59 | Urology Progress Note ---
Date of Service August 16, 2023 Assessment & Plan (1) Urethral stricture: (2) Kidney stones: (3) S/P ureteral stent placement: (4) Mera catheter present: (5) Dysuria: Plan 42yo/M who is s/p Cystoscopy with Urethral Dilation, Left Ureteroscopy with retrograde pyelogram, laser lithotripsy, stone basket extraction and left stent placement 08/15/[address] Bautista. Patient admitted to urology service postoperatively due to pain. - Still with dysuria and back pain, but significantly improved today and manageable with medication. - Remains afebrile, vitals stable. - Labs reviewed - WBC 9.99, Hemoglobin 13.3, Creatinine 0.67. - Mera draining appropriately - urine is orange colored. - Continue supportive care and pain management as needed - Continue antibiotics - Encourage ambulation - Maintain Mera catheter - Will reassess this afternoon with plans for probable discharge home later today given remains stable and has adequate pain control - Pt reassessed this afternoon. - Feeling well, progressing as expected. - Remains afebrile and hemodynamically stable. - Pain currently well controlled. - Ambulating without issue. - Tolerating diet. - Mera draining appropriately - urine is orange colored without clot. - Pt is stable for discharge home today with Mera catheter. - Will arrange appropriate postoperative follow-up. Plan of care reviewed with Dr. Bautista, on-call urologist. Admission and Anticipated Discharge Date Admission Date: August 15, 2023 Subjective Patient examined at bedside this AM. Asleep on arrival, awakened to name. No acute distress. Feeling better today than yesterday. Reports lower back pain and dysuria. Mera draining orange-colored urine. Denies f/c/n/v. Denies dizziness, lightheadedness, chest pain, shortness of breath. Tolerating diet. Review of Systems Constitutional: as per Subjective / HPI Gastrointestinal: as per Subjective / HPI Genitourinary: + as per Subjective / HPI Physical Exam Constitutional: no acute distress Respiratory: no respiratory distress and no labored breathing Musculoskeletal: Head/Neck/Chest: normocephalic Skin: No visible rashes or lesions to exposed skin areas Neurologic: moves all extremities and awake Psychiatric: A+Ox3, euthymic affect Genitourinary: Mera draining orange-colored urine Results & Data Vital Signs (Past 12 Hours) Vital Signs Temp Pulse Resp BP BP Pulse Ox O2 Del Method 08/16/23 08:07 36.7 C 81 18 138/84 94 Room Air 08/16/23 02:08 36.6 C 77 20 148/83 H 94 Room Air 08/15/23 22:51 36.8 C 89 20 133/77 94 Room Air PG Care Time/CCT Total # of Minutes Spent Total Time Spent with Patient: Total time spent is greater than 50% in coordination of care (as documented) at patient's floor/unit and/or counseling patient: Coding Level of Care Code 76797 SUB INP/OBS CARE 2/35MIN Diagnoses Urethral stricture N35.919 Kidney stones N20.0 S/P ureteral stent placement Z96.0 Mera catheter present Z97.8 Dysuria R30.0
[2023-08-16 12:07] LABS: Hematocrit (blood only) 40.7 % (42.0-52.0); Hemoglobin 13.3 g/dl (14.0-18.0); Mean Corpuscular Hemoglobin 30.6 pg (25.0-34.0); Mean Corpuscular Hgb Conc 32.7 g/dL (32.0-36.0); Mean Corpuscular Volume 93.8 fL (80.0-100.0); Mean Platelet Volume 11.8 fL (9.4-12.4); Platelet Count 168 K/uL (130-400); RDW Coefficient of Variation 12.2 % (11.5-14.5); RDW Standard Deviation 41.8 fL (36.4-46.3); Red Blood Count 4.34 M/uL (4.70-6.10); White Blood Count 9.99 K/ul (4.8-10.8)
[2023-08-16 12:22] LABS: BUN Creatinine Ratio 20.9 (10-20); Calcium 9.1 mg/dl (8.6-10.3); Est GFR (African American) 138.3 ml/min; Est GFR (Non-African American) 119.3 ml/min; Potassium 4.4 mmol/L (3.5-5.1)
--- NOTE | 2023-08-16 21:37 | Discharge Summary ---
Date of Service August 16, 2023 Admission HPI Per Admitting Provider 42 year old male who presented for Cystoscopy with Urethral Dilation, Left Ureteroscopy with retrograde pyelogram, laser lithotripsy, stone basket extraction and left stent placement with Dr. Bautista and was admitted postoperatively due to pain. Admission Exam Per Admitting Provider General: Alert/Arousable. No Acute illness. . HEENT: Inspection normal. Normal inspection of face. Normal inspection of neck. Psychologic: Normal affect/No change in mentation. Respiratory: No use of accessory muscles. No respiratory changes or exacerbation or changes with tachypnea or dyspnea. Cardiovascular: No tachycardia Skin: [place] and Dry. No new rashes or visible lesions. Abdomen: Normal inspection. No guarding. Principal Diagnosis Nephrolithiasis, Postop pain Discharge Exam Constitutional no acute distress Respiratory no respiratory distress and no labored breathing Musculoskeletal Head/Neck/Chest: normocephalic Neurologic moves all extremities and awake Psychiatric A+Ox3, euthymic affect Genitourinary Mera intact draining orange colored urine Discharge Data Allergies Allergy/AdvReac Type Severity Reaction Status Date / Time ibuprofen Allergy Intermediate LIPS SWELL Verified 08/15/23 10:31 Procedures Performed Operation Date: 08/15/23 11:35 Actual Procedures p Cystoscopy, Urethral Dilation, Ureteroscopy, laser destruction and removal of stone, (Left) - Dean Bautista DO s insertion of ureteral stent - Left side(Left) - Dean Bautista DO Ordered Studies 08/15/23 [place] retrograde includes kub Routine Hospital Course (1) Urethral stricture: (2) Kidney stones: (3) S/P ureteral stent placement: (4) Mera catheter present: (5) Dysuria: Plan 42yo/M who is s/p Cystoscopy with Urethral Dilation, Left Ureteroscopy with retrograde pyelogram, laser lithotripsy, stone basket extraction and left stent placement 08/15/[address] Bautista. Patient admitted to urology service postoperatively due to pain. - POD #1 - Still with dysuria and back pain, but significantly improved today and manageable with medication. - Remains afebrile, vitals stable. - Labs reviewed - WBC 9.99, Hemoglobin 13.3, Creatinine 0.67. - Mera draining appropriately - urine is orange colored. - Continue supportive care and pain management as needed - Continue antibiotics - Encourage ambulation - Maintain Mera catheter - Will reassess this afternoon with plans for probable discharge home later today given remains stable and has adequate pain control - Pt reassessed this afternoon. - Feeling well, progressing as expected. - Remains afebrile and hemodynamically stable. - Pain currently well controlled. - Ambulating without issue. - Tolerating diet. - Mera draining appropriately - urine is orange colored without clot. - Pt is stable for discharge home today with Mera catheter. - Will arrange appropriate postoperative follow-up. Plan of care reviewed with Dr. Bautista, on-call urologist. Total Time Total Time Spent Total Time Spent (In Minutes): 15 Discharge Plan Discharge Items Patient Disposition: Home - Self-Care Reason For Visit: POST OP PAIN Discharge Diagnosis: Same Condition on Discharge: Good Activity: Resume your previous activity Lifting: No more than 50 pounds Bathing Comment: OK to shower. Driving/Machine Use: Do not drive if taking prescription pain medication. Non-emergency contact: Surgeon and Urologist Call non-emergency contact if: you have any medication questions, your pain is worsening, your pain is unusual for you, your pain is concerning for you, you have a fever and your temperature is above 101.5 Follow-up/Referrals: Dean Bautista, [Physician] - Rajani Kim D.O. [Primary Care Provider] - Diet: Regular Addtl Attending Provider Instructions: Please take all medications as prescribed and keep all follow-ups as scheduled. Please call our office at [phone] with any questions, concerns or need to reschedule appointments for any reason. We are happy to assist you. The urology office will contact you to arrange a follow-up visit and catheter removal. Tips for your recovery at home: Dont be alarmed by brownish or reddish blood or clots in your urine. This is a result of the procedure. However, if this does not improve after 1 week, please contact our office. Drink plenty of fluids during the day (enough to keep your urine very light colored). This will help keep a healthy flow of urine. Do not lift >25 lbs until your followup Avoid constipation. Please use a stool softener (Colace) for the first two weeks after your procedure Be sure to finish the antibiotics as prescribed. If you go home with a catheter, please wash tubing where it enters your body twice daily with mild soap (Dove or Dial). Once your catheter is removed, expect some blood in your urine and some burning when you urinate. You should have an appointment to have this removed, if you do not please call our office to erica messer When to call [facility] at [phone]: Your urine contains heavy blood clots or your catheter is not draining You are constantly leaking urine Fever of 101F or higher, chills, nausea, or vomiting Your pain is not relieved with medication Pending Studies at Discharge: No Stand-Alone Forms: Anesthesia/Sedation, Adult, My [facility] Medications and DC Order Prescriptions: New phenazopyridine [Pyridium] 200 mg tablet 200 mg PO Q8H PRN (Reason: pain) Qty: 10 0RF tamsulosin 0.4 mg capsule 0.4 mg PO HS Qty: 30 0RF oxycodone-acetaminophen [Percocet] 7.5-325 mg tablet 1 tab PO Q8H PRN (Reason: pain) Qty: 7 0RF cephalexin 500 mg capsule 500 mg PO BID 7 Days Qty: 14 0RF Continued hydrochlorothiazide 12.5 mg capsule 12.5 mg PO QAM levothyroxine 50 mcg tablet 50 mcg PO QAM cyanocobalamin (vitamin B-12) 1,000 mcg Tablet, Sublingual 1,000 mcg SUBLINGUAL QAM lisinopril 40 mg tablet 40 mg PO QAM Flintstones Complete Tablet,Chewable 2 tab PO DAILY tamsulosin 0.4 mg capsule 0.4 mg PO QAM ergocalciferol (vitamin D2) 1,250 mcg (50,000 unit) capsule 50,000 unit PO 2XWK cholecalciferol (vitamin D3) [Vitamin D3] 125 mcg (5,000 unit) Tablet 125 mcg PO QAM acetaminophen 650 mg Tablet Extended Release 1,300 mg PO QAM No Action oxybutynin chloride 5 mg tablet 5 mg PO TID PRN (Reason: bladder spasms) Qty: 30 0RF Discharge Orders: Discharge Order (Routine); Ordered 08/16/23 Ordered By: Esha Mendez/Other Patient Handouts: DVT Post Op Prevention, Urinary Catheter Bag Empty Clean Admission Data Admit Date/Time: 08/15/23 18:25 Attending Provider: Dean Bautista Admit Provider: Dean Bautista Primary Care Provider: Rajani Kim Other Interventions: Discharge Summary Assessment (RN) Last Done: 08/16/23 14:18 Coding Level of Care Code 58912 IN/OBS DISCH 30 MIN/LESS Diagnoses Urethral stricture N35.919 Kidney stones N20.0 S/P ureteral stent placement Z96.0 Mera catheter present Z97.8 Dysuria R30.0
== END 2023-08-16 17:43 | disposition home or self-care (01) ==
LOC: 3E 10:08 → ASU 10:08